=== PATIENT | female | born 1980 | race Caucasian/White ===

== ENCOUNTER 2016-10-23 20:49 | Emergency (ER) | payer OTHER ==
[2016-10-23] MEDS ORDERED: NS 0.9% 1000 ML* 1,000 ML IV ONE (22:52)
[2016-10-23 23:12] LABS: Hematocrit 41 % (35-47); Hemoglobin 13.8 g/dl (12.0-16.0); Mean Corpuscular HGB Conc 34 g/dl (31-36); Mean Corpuscular Hemoglobin 32 pg (27-31); Mean Corpuscular Volume 95 fL (80-97); Mean Platelet Volume 8 um3 (7.4-10.4); Red Blood Count 4.35 10^6/ul (4.0-5.4); Red Cell Distribution Width 13 % (10.5-15); White Blood Count 6.9 10^3/ul (3.5-10.8)
[2016-10-23 23:29] LABS: ALT 9 U/L (7-52); AST 10 U/L (13-39); Alkaline Phosphatase 39 U/L (34-104); Anion Gap 6 mmol/L (2-11); Blood Urea Nitrogen 13 mg/dL (6-24); CO2 Carbon Dioxide 28 mmol/L (22-32); Calcium 9.3 mg/dL (8.6-10.3); Chloride 107 mmol/L (101-111); EGFR African American 131.9 (>60); EGFR Non-African American 102.6 (>60); Globulin 2.7 g/dL (2-4); Glucose 64 mg/dL (70-100); Lipase 56 U/L (11.0-82.0); Potassium 3.8 mmol/L (3.5-5.0); Sodium 141 mmol/L (133-145); Total Protein 6.7 g/dL (6.4-8.9)
[2016-10-24] MEDS ORDERED: Iohexol 350* (CONTRAST) 500 ML MDV IV ONE (01:37)
[2016-10-24] MEDS ORDERED: Iohexol 300* (CONTRAST) 10 ML SDV IV ONE (01:40)
[2016-10-24 01:46] LABS: Urine Bilirubin Negative (Negative); Urine Glucose Negative (Negative); Urine Nitrite Negative (Negative)
--- NOTE | 2016-10-24 02:51 | ED ---
Librado Lee Alok, scribed for Rowdy Benitez on 10/23/16 at 2257 . Abdominal Pain/Female - HPI Summary HPI Summary: 36 female present to the ED with diffuse abd cramping and diarrhea for the past 3-4 days. Pt denies vomiting. Pt states she is currently taking the antibiotics clementin and was taking augmentin before that for a recent MRSA infection diagnosis. Pt states this is her 6-7th day on antibiotics. PMHx includes PTSD, h /o PE, and previous heart valve. - History of Current Complaint Chief Complaint: EDNauseaVomitDiarrh Stated Complaint: DIARRHEA,ABD PAIN Time Seen by Provider: 10/23/16 22:38 Hx Obtained From: Patient Hx Last Menstrual Period: iud ?: No Onset/Duration: Lasting Days, Still Present Timing: Constant Severity Initially: Moderate Severity Currently: Moderate Pain Intensity: 5 Pain Scale Used: 0-10 Numeric Location: Diffuse Character: Cramping Associated Signs and Symptoms: Positive: Diarrhea. Negative: Vomiting Allergies/Adverse Reactions: Allergies Allergy/AdvReac Type Severity Reaction Status Date / Time No Known Allergies Allergy Verified 10/23/16 20:51 PMH/Surg Hx/FS Hx/Imm Hx Endocrine/Hematology History: Reports: Hx Anticoagulant Therapy Denies: Hx Diabetes, Hx Thyroid Disease Cardiovascular History: Denies: Hx Congestive Heart Failure, Hx Deep Vein Thrombosis, Hx Hypertension , Hx Myocardial Infarction, Hx Pacemaker/ICD Respiratory History: Reports: Hx Pulmonary Embolism - recent diagnosis, Hx Sleep Apnea, Other Respiratory Problems/Disorders - HX OF BILATERAL PE'S Denies: Hx Asthma, Hx Chronic Obstructive Pulmonary Disease (COPD), Hx Lung Cancer, Hx Pneumonia GI History: Denies: Hx Gall Bladder Disease, Hx Gastrointestinal Bleed, Hx Ulcer, Hx Urosepsis History: Denies: Hx Kidney Stones, Hx Renal Disease Musculoskeletal History: Denies: Hx Scoliosis Sensory History: Denies: Hx Hearing Aid Neurological History: Reports: Hx CVA - x 2, Hx Seizures - Manic episodes. Denies: Hx Dementia, Hx Headaches, Hx Migraine, Hx Transient Ischemic Attacks (TIA) Psychiatric History: Reports: Hx Anxiety, Hx Depression, Hx Panic Disorder, Hx Post Traumatic Stress Disorder, Hx Bipolar Disorder - takes depakote Denies: Hx Eating Disorder, Hx of Violent Episodes Against Others - Surgical History Surgery Procedure, Year, and Place: appendectomy 2002;. MIRENA IUD Hx Anesthesia Reactions: No Infectious Disease History: Yes Infectious Disease History: Denies: Hx Clostridium Difficile, Hx Hepatitis, Hx Human Immunodeficiency Virus (HIV), Hx of Known/Suspected MRSA, Hx Shingles, Hx Tuberculosis, Hx Known/ Suspected VRE, Hx Known/Suspected VRSA, History Other Infectious Disease, Traveled Outside the [place] in Last 30 Days - Family History Known Family History: Negative: Cardiac Disease, Hypertension, Diabetes - Social History Occupation: Unemployed Alcohol Use: Rare Hx Substance Use: Yes Substance Use Type: Reports: None, Marijuana, Other Substance Use Comment - Amount & Last Used: States she smokes Marijuana ocassionally, IV meth use two days ago Hx Tobacco Use: Yes Smoking Status (MU): Heavy Every Day Tobacco Smoker Type: Cigarettes Amount Used/How Often: 1 ppd Have You Smoked in the Last Year: Yes Review of Systems Negative: Fever Positive: Abdominal Pain, Diarrhea. Negative: Vomiting All Other Systems Reviewed And Are Negative: Yes Physical Exam Triage Information Reviewed: Yes Vital Signs On Initial Exam: Initial Vitals Temp Pulse Resp BP Pulse Ox 98.5 F 78 18 130/71 99 10/23/16 20:52 10/23/16 20:52 10/23/16 20:52 10/23/16 20:52 10/23/16 20:52 Vital Signs Reviewed: Yes Appearance: Positive: Well-Appearing, No Pain Distress Skin: Positive: Other - Skin macules Head/Face: Positive: Normal Head/Face Inspection Eyes: Positive: EOMI, SHE ENT: Positive: Normal ENT inspection Neck: Positive: Supple, Nontender Respiratory/Lung Sounds: Positive: Clear to Auscultation, Breath Sounds Present Cardiovascular: Positive: RRR, Pulses are Symmetrical in both Upper and Lower Extremities Abdomen Description: Positive: Soft, Other: - diffuse abd tenderness Bowel Sounds: Positive: Present Musculoskeletal: Positive: Normal, Strength/ROM Intact Neurological: Positive: Normal, Sensory/Motor Intact, Alert, Oriented to Person Place, Time Diagnostics - Vital Signs Vital Signs Temp Pulse Resp BP Pulse Ox 10/23/16 20:52 98.5 F 78 18 130/71 99 - Laboratory Result Diagrams: 10/23/16 22:50 10/23/16 22:50 Lab Statement: Any lab studies that have been ordered have been reviewed, and results considered in the medical decision making process. - CT abd/pel CT CT Interpretation: Positive (See Comments) - Impression: No definite evidence of acute pathology. CT Interpretation Completed By: Radiologist Abdominal Pain Fem Course/Dx - Course Course Of Treatment: Pt arrived with abd pain. Did CT results negative. Pt was unable to provide stool sample for C.Diff. Will discharge pt home with stool collection kit and recommendation to follow up with PCP. - Diagnoses Provider Diagnoses: MRSA (methicillin resistant Staphylococcus aureus), Abdominal pain Discharge - Discharge Plan Condition: Stable Disposition: HOME Patient Education Materials: MRSA (Methicillin-Resistant Staphylococcus Aureus ) (ED), Abdominal Pain (ED) Additional Instructions: Please follow up with your primary care provider in the next 3 days. The documentation as recorded by the Librado schmidt Alok accurately reflects the service I personally performed and the decisions made by Emmanuel sinha Emmanuel.
[2016-10-24 03:24] VITALS: BP 105/57
--- NOTE | 2016-10-24 08:25 | RAD ---
INDICATION: Clinical presentation concerning for diverticulitis. Post appendectomy. COMPARISON: None. TECHNIQUE: Multidetector CT images were obtained from the lung bases to the ischial tuberosities with 97 mL Omnipaque 300 IV and oral contrast. Multiplanar reformation. REPORT: Unremarkable visualized inferior thorax. Unremarkable liver. The gallbladder is completely decompressed limiting assessment without gross abnormality. Unremarkable pancreas and spleen. Negative for CT abnormality of the upper GI or small bowel. Post appendectomy. Unremarkable colon which is largely decompressed from the splenic flexure distal. Physiologic small volume of free pelvic fluid. Negative for free air or significant hernias. Normal adrenal glands. Symmetric nephrograms and pyelograms. Small parapelvic cyst upper pole RIGHT kidney. No suspicious focal renal lesions or hydronephrosis. No suspicious findings along the course of the nondilated ureters. Innumerable pelvic phleboliths. Anteverted uterus with IUD in place the uterus the uterus measures up to 8.2 x 6.7 x 4.9 cm. Prominent opacified veins in the periphery of the uterus as well as bilateral adnexal regions and both enlargement of the LEFT gonadal vein and reversal of flow in the LEFT gonadal vein. The constellation of findings is concerning for pelvic congestion syndrome. No suspicious ovarian or paraovarian adnexal region lesions. Unremarkable urinary bladder. Negative for lymphadenopathy. Normal diameter abdominal aorta and iliac arteries with minimal calcific plaque. Physiologic distention of the IVC. Negative for suspicious focal osseous lesions. IMPRESSION: 1. Negative for colonic diverticulosis. Post appendectomy. No obstructive or inflammatory process of the alimentary tract evident. 2. Stigmata of potential pelvic congestion syndrome; correlate with clinical presentation.
== END 2016-10-24 02:55 | disposition home or self-care (01) ==
LOC: ED 20:49
DX: A49.02 Methicillin resistant Staphylococcus aureus infection, unspecified site (principal); R10.9 Unspecified abdominal pain; R19.7 Diarrhea, unspecified
CPT/HCPCS: 36415; 74177; 80053; 81003; 83690; 84702; 85025; 85610; 85730; 99284; Q9967

== ENCOUNTER 2016-11-28 14:33 | Emergency (ER) | payer OTHER ==
--- NOTE | 2016-11-28 15:45 | UC ---
Abdominal Pain Female HPI - HPI Summary HPI Summary: 36 yo female with ruq pain x days States she was seen at [facility] 2 days ago and an ultrasound showed her gall bladder was full of stones has felt feverish states her urine is now dark nausea no vomiting states she has had numerous "issues" x 2 years including wt loss, chronic skin sores - History of Current Complaint Chief Complaint: UCGeneralIllness Stated Complaint: ABD LUMP,LEG SWELLING Time Seen by Provider: 11/28/16 15:24 Hx Obtained From: Patient Hx Last Menstrual Period: IUD Onset/Duration: Gradual Onset, Lasting Days Timing: Constant Severity Initially: Mild Severity Currently: Moderate Pain Intensity: 8 Pain Scale Used: 0-10 Numeric Location: Discrete At: RUQ Character: Aching Aggravating Factor(s): Movement Alleviating Factor(s): Nothing Associated Signs and Symptoms: Positive: Diaphoresis, Nausea Allergies/Adverse Reactions: Allergies Allergy/AdvReac Type Severity Reaction Status Date / Time No Known Allergies Allergy Verified 11/28/16 14:40 Home Medications: Home Medications Methylphenidate ER (NF) [Concerta (NF)] 27 mg PO DAILY 11/28/16 [History Confirmed 11/28/16] PMH/Surg Hx/FS Hx/Imm Hx Previously Healthy: Yes Other History Of: Anticoagulant Therapy Negative For: HIV, Hepatitis B, Hepatitis C - Surgical History Surgical History: Yes Surgery Procedure, Year, and Place: appendectomy 2002;. MIRENA IUD - Family History Known Family History: Positive: Other - gall bladder disease Negative: Cardiac Disease, Hypertension, Diabetes - Social History Alcohol Use: Rare Substance Use Type: Marijuana, Other Substance Use Comment - Amount & Last Used: States she smokes Marijuana ocassionally, IV meth use two days ago Smoking Status (MU): Heavy Every Day Tobacco Smoker Type: Cigarettes Amount Used/How Often: 1 ppd Have You Smoked in the Last Year: Yes Household Exposure Type: Cigarettes - Immunization History Most Recent Influenza Vaccination: March 2015 Most Recent Tetanus Shot: unknown Most Recent Pneumonia Vaccination: Never Review of Systems Constitutional: Fever - augustine, Chills Skin: Negative Eyes: Negative ENT: Negative Respiratory: Negative Cardiovascular: Negative Gastrointestinal: Abdominal Pain Genitourinary: Negative Motor: Negative Neurovascular: Negative Musculoskeletal: Negative Neurological: Negative Psychological: Negative All Other Systems Reviewed And Are Negative: Yes Physical Exam Triage Information Reviewed: Yes Appearance: Well-Appearing, Pain Distress - holding RUQ, Thin Vital Signs: Initial Vital Signs Temp 99.6 F 11/28/16 14:37 Pulse 114 11/28/16 14:37 Resp 18 11/28/16 14:37 BP 148/80 11/28/16 14:37 Pulse Ox 100 11/28/16 14:37 Vital Signs Reviewed: Yes Eyes: Positive: Conjunctiva Clear ENT: Positive: Pharyngeal erythema - thrush? Dental: Negative: Abscess @ Neck: Positive: Supple, Nontender, No Lymphadenopathy Respiratory: Positive: Lungs clear, Normal breath sounds, No respiratory distress, No accessory muscle use Cardiovascular: Positive: RRR, No Murmur Abdomen Description: Positive: No Organomegaly, Soft, CVA Tenderness (R) - mild , Other: - tender RUQ. Negative: Nontender, Bruit Bowel Sounds: Positive: Present Musculoskeletal: Positive: ROM Intact, No Edema Neurological: Positive: Alert Psychological Exam: Normal Skin Exam: Other - numerous quarter sized lesions face/arms/abd/back some crusted /some ulcerated Abd Pain Female Course/Dx - Course Course Of Treatment: pt reports multiple gallstones (u/s done at [facility]), pain worse now, feverish, chills and nausea. tachycardic. very tender RUQ I suggested she go to [facility] for further evaluation. She declines EMS transfer - Differential Dx/Diagnosis Provider Diagnoses: RUQ abd pain of uncertain cause Discharge - Discharge Plan Condition: Fair Disposition: AGAINST MEDICAL ADVICE
[2016-11-28] MEDS ORDERED: Ondansetron ODT TAB* 4 MG PO ONE (15:57)
[2016-11-28] MEDS ORDERED: Ketorolac INJ* 30 MG/ML 1 ML VIAL IM ONE (15:57)
[2016-11-28 16:39] VITALS: BP 135/79
== END 2016-11-28 16:39 | disposition left against medical advice (07) ==
LOC: UCEAST 14:33
DX: R10.11 Right upper quadrant pain (principal); F17.210 Nicotine dependence, cigarettes, uncomplicated
CPT/HCPCS: 81003; 96372; 99212; A9270-GY; G0463; J1885

== ENCOUNTER 2016-11-28 17:17 | Emergency (ER) | payer OTHER ==
[2016-11-28 20:08] LABS: Hematocrit 39 % (35-47); Hemoglobin 13.4 g/dl (12.0-16.0); Mean Corpuscular HGB Conc 34 g/dl (31-36); Mean Corpuscular Hemoglobin 33 pg (27-31); Mean Corpuscular Volume 95 fL (80-97); Mean Platelet Volume 7 um3 (7.4-10.4); Red Blood Count 4.11 10^6/ul (4.0-5.4); Red Cell Distribution Width 13 % (10.5-15); White Blood Count 6.3 10^3/ul (3.5-10.8)
[2016-11-28 20:23] LABS: Albumin 4.2 g/dL (3.2-5.2); BUN/Creatinine Ratio 14.7 (8-20); C Reactive Protein 8.18 mg/L (< 5.00); Calcium 9.4 mg/dL (8.6-10.3); EGFR African American 125.2 (>60); EGFR Non-African American 97.4 (>60); Globulin 2.8 g/dL (2-4); Potassium 3.6 mmol/L (3.5-5.0); Total Bilirubin 0.3 mg/dL (0.2-1.0)
[2016-11-28 20:38] LABS: Urine Bacteria Absent (Absent); Urine Bilirubin Negative (Negative); Urine Glucose Negative (Negative); Urine Nitrite Negative (Negative)
[2016-11-28 20:46] LABS: Benzodiazepine Urine Screen None Detected (None Detect)
--- NOTE | 2016-11-28 21:53 | RAD ---
Indication: Right upper quadrant pain. Real-time sonography of the right upper quadrant was performed. The liver is normal in size. No focal lesions or intrahepatic ductal dilatation is noted. The gallbladder demonstrates multiple echogenic foci consistent with gallstones. No pericholecystic fluid or wall thickening is noted. Common duct measures up to 8 mm. Right kidney measures 12.3 x 4.6 x 6.1 cm with no hydronephrosis. Cyst is noted in the upper pole the right kidney measured to 15 mm. The pancreatic head, neck and proximal body demonstrates no mass or ductal dilatation. Aorta and inferior vena cava are unremarkable. IMPRESSION: Cholelithiasis without evidence of biliary duct dilatation. Cyst is noted in the upper pole of the right kidney.
[2016-11-28] MEDS ORDERED: Cephalexin CAP* 500 MG PO ONE (22:26)
[2016-11-28 23:09] VITALS: BP 122/78
--- NOTE | 2016-11-28 23:41 | ED ---
Avery Lee Aidan, scribed for Madhav Levine MD on 11/28/16 at 2225 . Complex/Multi-Sys Presentation - HPI Summary HPI Summary: 36 y/o female presents to the ED with a complaint of acute, constant, moderate, skin scabs over her body diffusely. Additionally, she has acute, constant, moderate RUQ abdominal pain. She currently has gallstones. The patient also mentions stuff coming out of her skin. She mentions having been on antibiotics for a long time. - History Of Current Complaint Chief Complaint: EDGeneral Time Seen by Provider: 11/28/16 19:43 Hx Obtained From: Patient Onset/Duration: Sudden Onset, Lasting Days, Still Present Timing: Constant Severity Currently: Moderate Severity Initially: Moderate Location: Pain At: - associated pain (burning sensation) at her scabs which present on her body diffusely Character: Unable To Describe - burning sensation Aggravating Factor(s): unknown Alleviating Factor(s): unknown Associated Signs And Symptoms: Positive: Abdominal Pain - RUQ pain, Other - diffuse body scabs - Allergies/Home Medications Allergies/Adverse Reactions: Allergies Allergy/AdvReac Type Severity Reaction Status Date / Time No Known Allergies Allergy Verified 11/28/16 14:40 PMH/Surg Hx/FS Hx/Imm Hx Endocrine/Hematology History: Reports: Hx Anticoagulant Therapy Denies: Hx Diabetes, Hx Thyroid Disease Cardiovascular History: Denies: Hx Congestive Heart Failure, Hx Deep Vein Thrombosis, Hx Hypertension , Hx Myocardial Infarction, Hx Pacemaker/ICD Respiratory History: Reports: Hx Pulmonary Embolism - recent diagnosis, Hx Sleep Apnea, Other Respiratory Problems/Disorders - HX OF BILATERAL PE'S Denies: Hx Asthma, Hx Chronic Obstructive Pulmonary Disease (COPD), Hx Lung Cancer, Hx Pneumonia GI History: Denies: Hx Gall Bladder Disease, Hx Gastrointestinal Bleed, Hx Ulcer, Hx Urosepsis History: Denies: Hx Dialysis, Hx Kidney Stones, Hx Renal Disease Musculoskeletal History: Denies: Hx Scoliosis Sensory History: Denies: Hx Hearing Aid Neurological History: Reports: Hx CVA - x 2, Hx Seizures - Manic episodes. Denies: Hx Dementia, Hx Headaches, Hx Migraine, Hx Transient Ischemic Attacks (TIA) Psychiatric History: Reports: Hx Anxiety, Hx Depression, Hx Panic Disorder, Hx Post Traumatic Stress Disorder, Hx Bipolar Disorder - takes depakote Denies: Hx Eating Disorder, Hx of Violent Episodes Against Others - Surgical History Surgery Procedure, Year, and Place: appendectomy 2002;. MIRENA IUD Hx Anesthesia Reactions: No Infectious Disease History: No Infectious Disease History: Reports: Hx of Known/Suspected MRSA Denies: Hx Clostridium Difficile, Hx Hepatitis, Hx Human Immunodeficiency Virus (HIV), Hx Shingles, Hx Tuberculosis, Hx Known/Suspected VRE, Hx Known/ Suspected VRSA, History Other Infectious Disease, Traveled Outside the [place] in Last 30 Days - Family History Known Family History: Positive: Other - gall bladder disease Negative: Cardiac Disease, Hypertension, Diabetes - Social History Occupation: Unemployed Lives: Alone Alcohol Use: Rare Hx Substance Use: Yes Substance Use Type: Reports: Marijuana Substance Use Comment - Amount & Last Used: States she smokes Marijuana ocassionally Hx Tobacco Use: Yes Smoking Status (MU): Heavy Every Day Tobacco Smoker Type: Cigarettes Amount Used/How Often: 1 ppd Have You Smoked in the Last Year: Yes Review of Systems Constitutional: Negative Eyes: Negative ENT: Negative Cardiovascular: Negative Respiratory: Negative Genitourinary: Negative Musculoskeletal: Negative Positive: Other - diffuse body scabs. Negative: Rash, Bruising Neurological: Negative Psychological: Normal All Other Systems Reviewed And Are Negative: Yes Physical Exam - Summary Physical Exam Summary: Constitutional: Well-developed, Well-nourished, Alert. (-) Distressed Skin: Warm, Dry, (+) Excoriated ulcerated wounds on hands, feet, abdomen, and back of the neck with no surrounding erythema HENT: Normocephalic; Atraumatic Eyes: Conjunctiva normal Neck: Musculoskeletal ROM normal neck. (-) JVD, (-) Stridor, (-) Tracheal deviation Cardio: Rhythm regular, rate normal, Heart sounds normal; Intact distal pulses; The pedal pulses are 2+ and symmetric. Radial pulses are 2+ and symmetric. (-) Murmur Pulmonary/Chest wall: Effort normal. (-) Respiratory distress, (-) Wheezes, (-) Rales Abd: Soft, (-) Tenderness, (-) Distension, (-) Guarding, (-) Rebound Musculoskeletal: (-) Edema Lymph: (-) Cervical adenopathy Neuro: Alert, Oriented x3 Psych: Mood and affect Normal Triage Information Reviewed: Yes Vital Signs On Initial Exam: Initial Vitals Temp Pulse Resp BP Pulse Ox 98.8 F 114 20 132/91 100 11/28/16 17:34 11/28/16 17:34 11/28/16 17:34 11/28/16 17:34 11/28/16 17:34 Vital Signs Reviewed: Yes - [place]ago Coma Scale Coma Scale Total: 15 Diagnostics - Vital Signs Vital Signs Temp Pulse Resp BP Pulse Ox 11/28/16 18:57 85 16 128/55 100 11/28/16 17:36 98.6 F 113 20 132/91 100 11/28/16 17:34 98.8 F 114 20 132/91 100 - Laboratory Lab Results: Lab Results 11/28/16 11/28/16 11/28/16 Range/Units 19:59 19:59 19:59 WBC 6.3 (3.5-10.8) 10^3/ul RBC 4.11 (4.0-5.4) 10^6/ul Hgb 13.4 (12.0-16.0) g/dl Hct 39 (35-47) % MCV 95 (80-97) fL MCH 33 H (27-31) pg MCHC 34 (31-36) g/dl RDW 13 (10.5-15) % Plt Count 278 (150-450) 10^3/ul MPV 7 L (7.4-10.4) um3 Neut % (Auto) 54.2 (38-83) % Lymph % (Auto) 34.1 (25-47) % Ray % (Auto) 8.9 (1-9) % Eos % (Auto) 2.3 (0-6) % Baso % (Auto) 0.5 (0-2) % Absolute Neuts (auto) 3.4 (1.5-7.7) 10^3/ul Absolute Lymphs (auto) 2.1 (1.0-4.8) 10^3/ul Absolute Monos (auto) 0.6 (0-0.8) 10^3/ul Absolute Eos (auto) 0.1 (0-0.6) 10^3/ul Absolute Basos (auto) 0 (0-0.2) 10^3/ul Absolute Nucleated RBC 0 10^3/ul Nucleated RBC % 0 Sodium 137 (133-145) mmol/L Potassium 3.6 (3.5-5.0) mmol/L Chloride 104 (101-111) mmol/L Carbon Dioxide 26 (22-32) mmol/L Anion Gap 7 (2-11) mmol/L BUN 10 (6-24) mg/dL Creatinine 0.68 (0.51-0.95) mg/dL Est GFR ( Amer) 125.2 (>60) Est GFR (Non-Af Amer) 97.4 (>60) BUN/Creatinine Ratio 14.7 (8-20) Glucose 75 (70-100) mg/dL Lactic Acid 1.0 (0.5-2.0) mmol/L Calcium 9.4 (8.6-10.3) mg/dL Total Bilirubin 0.30 (0.2-1.0) mg/dL AST 16 (13-39) U/L ALT 15 (7-52) U/L Alkaline Phosphatase 38 (34-104) U/L C-Reactive Protein 8.18 H (< 5.00) mg/L Total Protein 7.0 (6.4-8.9) g/dL Albumin 4.2 (3.2-5.2) g/dL Globulin 2.8 (2-4) g/dL Albumin/Globulin Ratio 1.5 (1-3) Lipase 25 (11.0-82.0) U/L Urine Color Urine Appearance Urine pH (5-9) Ur Specific [place] (1.010-1.030) Urine Protein (Negative) Urine Ketones (Negative) Urine Blood (Negative) Urine Nitrate (Negative) Urine Bilirubin (Negative) Urine Urobilinogen (Negative) Ur Leukocyte Esterase (Negative) Urine WBC (Auto) (Absent) Urine RBC (Auto) (Absent) Ur Squamous Epith Cells (Absent) Amorphous Crystals (Absent) Urine Bacteria (Absent) Urine Glucose (Negative) Urine Opiates Screen (None Detect) Ur Barbiturates Screen (None Detect) Ur Phencyclidine Scrn (None Detect) Ur Amphetamines Screen (None Detect) U Benzodiazepines Scrn (None Detect) Urine Cocaine Screen (None Detect) U Cannabinoids Screen (None Detect) 11/28/16 11/28/16 Range/Units 20:20 20:20 WBC (3.5-10.8) 10^3/ul RBC (4.0-5.4) 10^6/ul Hgb (12.0-16.0) g/dl Hct (35-47) % MCV (80-97) fL MCH (27-31) pg MCHC (31-36) g/dl RDW (10.5-15) % Plt Count (150-450) 10^3/ul MPV (7.4-10.4) um3 Neut % (Auto) (38-83) % Lymph % (Auto) (25-47) % Ray % (Auto) (1-9) % Eos % (Auto) (0-6) % Baso % (Auto) (0-2) % Absolute Neuts (auto) (1.5-7.7) 10^3/ul Absolute Lymphs (auto) (1.0-4.8) 10^3/ul Absolute Monos (auto) (0-0.8) 10^3/ul Absolute Eos (auto) (0-0.6) 10^3/ul Absolute Basos (auto) (0-0.2) 10^3/ul Absolute Nucleated RBC 10^3/ul Nucleated RBC % Sodium (133-145) mmol/L Potassium (3.5-5.0) mmol/L Chloride (101-111) mmol/L Carbon Dioxide (22-32) mmol/L Anion Gap (2-11) mmol/L BUN (6-24) mg/dL Creatinine (0.51-0.95) mg/dL Est GFR ( Amer) (>60) Est GFR (Non-Af Amer) (>60) BUN/Creatinine Ratio (8-20) Glucose (70-100) mg/dL Lactic Acid (0.5-2.0) mmol/L Calcium (8.6-10.3) mg/dL Total Bilirubin (0.2-1.0) mg/dL AST (13-39) U/L ALT (7-52) U/L Alkaline Phosphatase (34-104) U/L C-Reactive Protein (< 5.00) mg/L Total Protein (6.4-8.9) g/dL Albumin (3.2-5.2) g/dL Globulin (2-4) g/dL Albumin/Globulin Ratio (1-3) Lipase (11.0-82.0) U/L Urine Color [place] Urine Appearance Cloudy Urine pH 7.0 (5-9) Ur Specific [place] 1.028 (1.010-1.030) Urine Protein 1+(30 mg/dl) H (Negative) Urine Ketones Trace H (Negative) Urine Blood Negative (Negative) Urine Nitrate Negative (Negative) Urine Bilirubin Negative (Negative) Urine Urobilinogen Negative (Negative) Ur Leukocyte Esterase 1+ H (Negative) Urine WBC (Auto) Trace(0-5/hpf) (Absent) Urine RBC (Auto) 2+(6-10/hpf) H (Absent) Ur Squamous Epith Cells Present H (Absent) Amorphous Crystals Present H (Absent) Urine Bacteria Absent (Absent) Urine Glucose Negative (Negative) Urine Opiates Screen None detected (None Detect) Ur Barbiturates Screen None detected (None Detect) Ur Phencyclidine Scrn None detected (None Detect) Ur Amphetamines Screen Presumptive positive H (None Detect) U Benzodiazepines Scrn None detected (None Detect) Urine Cocaine Screen None detected (None Detect) U Cannabinoids Screen Presumptive positive H (None Detect) Result Diagrams: 11/28/16 19:59 11/28/16 19:59 Lab Statement: Any lab studies that have been ordered have been reviewed, and results considered in the medical decision making process. - Ultrasound No standard instances Ultrasound Interpretation: Positive (See Comments) - GALLBLADDER US IMPRESSION: Cholelithiasis without evidence of biliary duct dilatation. Cyst is noted in the upper pole of the right kidney. Ultrasound Interpretation Completed By: Radiologist Jazmine Multi-Symp Course/Dx Course Of Treatment: 36 y/o female presents with diffuse body scabs and RUQ abdominal pain. She will be discharged and should follow up with dermatology, surgery, and with her therapist. - Diagnoses Provider Diagnoses: Anxiety, picking behavior, Gallstones Discharge - Discharge Plan Condition: Stable Disposition: HOME Discharge Disposition Comment: Please follow up with dermatology, surgery, and therapy within 72 hours. Prescriptions: Cephalexin CAP* [Keflex CAP*] 500 mg PO QID #40 cap Referrals: Nuha Borrero MD [Primary Care Provider] - Viviana Gonzalez MD [Medical Doctor] - Chuy Campa MD [Medical Doctor] - The documentation as recorded by the Avery schmidt Aidan accurately reflects the service I personally performed and the decisions made by , Madhav Levine MD.
== END 2016-11-28 23:13 | disposition home or self-care (01) ==
LOC: ED 17:17
DX: F41.9 Anxiety disorder, unspecified (principal); K80.80 Other cholelithiasis without obstruction; R10.11 Right upper quadrant pain; F17.210 Nicotine dependence, cigarettes, uncomplicated
CPT/HCPCS: 36415; 76705; 80053; 80307; 81003; 81015; 83605; 83690; 85025; 86140; 87086; 99283; A9270-GY

== ENCOUNTER 2017-07-06 17:43 | Emergency (ER) | payer OTHER ==
[2017-07-06 19:52] LABS: Urine Appearance Cloudy; Urine Blood 1+ (Negative); Urine Color Yellow; Urine Ketones Negative (Negative); Urine Protein Negative (Negative); Urine Specific Gravity 1.019 (1.010-1.030); Urine Urobilinogen Negative (Negative)
[2017-07-06] MEDS ORDERED: NS 0.9% 1000 ML* 1,000 ML IV ONE (19:56)
[2017-07-06] MEDS ORDERED: Ketorolac INJ* 30 MG/ML 1 ML VIAL IV PUSH ONE (19:56)
[2017-07-06 20:55] LABS: ABS Basophils 0 10^3/ul (0-0.2); ABS Eosinophils 0.1 10^3/ul (0-0.6); ABS Lymphocytes 2.2 10^3/ul (1.0-4.8); ABS Monocytes 0.6 10^3/ul (0-0.8); ABS Neutrophils 5.8 10^3/ul (1.5-7.7); ABS Nucleated RBC 0 10^3/ul; Eosinophil % 1.6 % (0-6); Hematocrit 41 % (35-47); Hemoglobin 13.8 g/dl (12.0-16.0); Lymphocyte % 24.9 % (25-47); Mean Corpuscular HGB Conc 34 g/dl (31-36); Mean Corpuscular Hemoglobin 32 pg (27-31); Mean Corpuscular Volume 94 fL (80-97); Mean Platelet Volume 8 um3 (7.4-10.4); Nucleated Red Blood Cells % 0; Platelet Count 284 10^3/ul (150-450); Red Blood Count 4.36 10^6/ul (4.0-5.4); Red Cell Distribution Width 14 % (10.5-15); White Blood Count 8.8 10^3/ul (3.5-10.8)
[2017-07-06 21:06] LABS: EGFR Non-African American 89.7 (>60)
[2017-07-06] MEDS ORDERED: Iohexol 350* (CONTRAST) 500 ML MDV IV ONE (21:48)
--- NOTE | 2017-07-06 22:07 | RAD ---
Indication: Facial swelling. CT of the facial bones was obtained in the axial plane. Postcontrast images were obtained after intravenous injection of 63 mL of Omnipaque 350. Sagittal and coronal reconstructed images were obtained. The mandible demonstrates no evidence of fracture. Temporomandibular joints are normally located. The maxilla demonstrates no fracture. Pterygoid plates are intact. The nasal arch and nasal septum are intact without fracture. Maxillary sinuses are clear. Zygomatic arch are intact bilaterally with no evidence of fracture. Ethmoid air cells are well aerated. The orbits are intact without evidence of fracture. Soft tissue demonstrates no evidence of abnormal enhancing tissue. No drainable fluid collections are noted. The parotid glands are unremarkable. Scattered minimal 2 lymph nodes are noted. Submandibular glands are grossly unremarkable. IMPRESSION: No fracture of the facial bones is identified. Scattered level 2 lymph nodes are noted in the neck bilaterally.
[2017-07-06] MEDS ORDERED: Clindamycin CAP* 150 MG PO ONE (22:27)
[2017-07-06] MEDS ORDERED: predniSONE TAB* 20 MG PO ONE (22:28)
[2017-07-06 23:19] VITALS: BP 125/69
--- NOTE | 2017-07-07 00:05 | ED ---
Simona Lee Nilda, scribed for Sharon Bhardwaj MD on 07/06/17 at 2031 . Complex/Multi-Sys Presentation - HPI Summary HPI Summary: This patient is a 36 year old F presenting to [facility] accompanied by kids with a chief complaint of constant, progressively worsening facial swelling and painful erythematous lesion on right forehead since waking up today. The patient rates the pain 4/10 in severity. Symptoms aggravated by palpation, and alleviated by nothing. Patient reports abd pain and abd swelling since yesterday , as well as chronic lesions on bilat UE. Last BM was 3-4 days ago. Pt denies N/ V/D, per triage note. Pt states she visited package designer who could not diagnose her. She notes that she had similar episode of facial swelling and lesions after being bitten by deer fly years ago. Pt is a smoker who occasionally smokes marijuana. She denies ETOH. - History Of Current Complaint Chief Complaint: EDAbdPain Time Seen by Provider: 07/06/17 19:35 Hx Obtained From: Patient Onset/Duration: Sudden Onset, Lasting Hours, Still Present Timing: Constant Severity Currently: Moderate Location: Pain At: - face and abd Aggravating Factor(s): palpation Alleviating Factor(s): nothing Associated Signs And Symptoms: Positive: Other - facial swelling and painful erythematous lesion on right forehead, abd pain and abd swelling since yesterday , as well as chronic lesions on bilat UE - Allergies/Home Medications Allergies/Adverse Reactions: Allergies Allergy/AdvReac Type Severity Reaction Status Date / Time No Known Allergies Allergy Verified 07/06/17 17:56 PMH/Surg Hx/FS Hx/Imm Hx Endocrine/Hematology History: Reports: Hx Anticoagulant Therapy Denies: Hx Diabetes, Hx Thyroid Disease Cardiovascular History: Denies: Hx Congestive Heart Failure, Hx Deep Vein Thrombosis, Hx Hypertension , Hx Myocardial Infarction, Hx Pacemaker/ICD Respiratory History: Reports: Hx Pulmonary Embolism - recent diagnosis, Hx Sleep Apnea, Other Respiratory Problems/Disorders - HX OF BILATERAL PE'S Denies: Hx Asthma, Hx Chronic Obstructive Pulmonary Disease (COPD), Hx Lung Cancer, Hx Pneumonia GI History: Denies: Hx Gall Bladder Disease, Hx Gastrointestinal Bleed, Hx Ulcer, Hx Urosepsis History: Denies: Hx Dialysis, Hx Kidney Stones, Hx Renal Disease Musculoskeletal History: Denies: Hx Scoliosis Sensory History: Denies: Hx Hearing Aid Neurological History: Reports: Hx CVA - x 2, Hx Seizures - Manic episodes. Denies: Hx Dementia, Hx Headaches, Hx Migraine, Hx Transient Ischemic Attacks (TIA) Psychiatric History: Reports: Hx Anxiety, Hx Depression, Hx Panic Disorder, Hx Post Traumatic Stress Disorder, Hx Bipolar Disorder - takes depakote Denies: Hx Eating Disorder, Hx of Violent Episodes Against Others - Surgical History Surgery Procedure, Year, and Place: appendectomy 2002;. MIRENA IUD Hx Anesthesia Reactions: No Infectious Disease History: No Infectious Disease History: Reports: Hx of Known/Suspected MRSA Denies: Hx Clostridium Difficile, Hx Hepatitis, Hx Human Immunodeficiency Virus (HIV), Hx Shingles, Hx Tuberculosis, Hx Known/Suspected VRE, Hx Known/ Suspected VRSA, History Other Infectious Disease, Traveled Outside the [place] in Last 30 Days - Family History Known Family History: Positive: Hypertension, Other - gall bladder disease, Crohn's Negative: Cardiac Disease, Diabetes - Social History Lives: With Family Alcohol Use: None Hx Substance Use: Yes Substance Use Type: Reports: Marijuana Substance Use Comment - Amount & Last Used: States she smokes Marijuana ocassionally Hx Tobacco Use: Yes Smoking Status (MU): Heavy Every Day Tobacco Smoker Type: Cigarettes Amount Used/How Often: 1 ppd Have You Smoked in the Last Year: Yes Review of Systems Positive: Abdominal Pain, Other - abd swelling. Negative: Vomiting, Diarrhea, Nausea Positive: Other - facial swelling, painful erythematous lesion on right forehead , bilat UE chronic lesions All Other Systems Reviewed And Are Negative: Yes Physical Exam - Summary Physical Exam Summary: VITAL SIGNS: Reviewed. GENERAL: Patient is a well-developed and nourished female who is lying comfortable in the stretcher. Patient is not in any acute respiratory distress. HEAD AND FACE: No signs of trauma. No ecchymosis, hematomas or skull depressions. No sinus tenderness. Facial swelling in upper face. Localized tender swelling over right forehead. EYES: PERRLA, EOMI x 2, No injected conjunctiva, no nystagmus. EARS: Hearing grossly intact. Ear canals and tympanic membranes are within normal limits. MOUTH: Oropharynx within normal limits. NECK: Supple, trachea is midline, no adenopathy, no JVD, no carotid bruit, no c- spine tenderness, neck with full ROM. CHEST: Symmetric, no tenderness at palpation LUNGS: Clear to auscultation bilaterally. No wheezing or crackles. CVS: Regular rate and rhythm, S1 and S2 present, no murmurs or gallops appreciated. ABDOMEN: Soft, non-tender. No signs of distention. No rebound no guarding, and no masses palpated. Bowel sounds are normal. EXTREMITIES: FROM in all major joints, no edema, no cyanosis or clubbing. NEURO: Alert and oriented x 3. No acute neurological deficits. Speech is normal and follows commands. SKIN: Dry and warm. Chronic macular rash Triage Information Reviewed: Yes Vital Signs On Initial Exam: Initial Vitals Temp Pulse Resp BP Pulse Ox 99.3 F 94 16 115/85 100 07/06/17 17:56 07/06/17 17:56 07/06/17 17:56 07/06/17 17:56 07/06/17 17:56 Vital Signs Reviewed: Yes - [place] Coma Scale Coma Scale Total: 15 Diagnostics - Vital Signs Vital Signs Temp Pulse Resp BP Pulse Ox 07/06/17 18:27 78 99 07/06/17 17:56 99.3 F 94 16 115/85 100 - Laboratory Lab Results: Lab Results 07/06/17 Range/Units 19:28 Urine Color Yellow Urine Appearance Cloudy Urine pH 6.0 (5-9) Ur Specific [place] 1.019 (1.010-1.030) Urine Protein Negative (Negative) Urine Ketones Negative (Negative) Urine Blood 1+ H (Negative) Urine Nitrate Negative (Negative) Urine Bilirubin Negative (Negative) Urine Urobilinogen Negative (Negative) Ur Leukocyte Esterase Trace H (Negative) Urine WBC (Auto) Trace(0-5/hpf) (Absent) Urine RBC (Auto) Trace(0-2/hpf) (Absent) Ur Squamous Epith Cells Present H (Absent) Urine Bacteria 1+ H (Absent) Urine Glucose Negative (Negative) Result Diagrams: 07/06/17 20:30 07/06/17 20:30 Lab Statement: Any lab studies that have been ordered have been reviewed, and results considered in the medical decision making process. - CT Maxillofacial CT Interpretation Completed By: Radiologist - CT Maxillofacial, per radiologist , reveals no fracture of the facial bones is identified. Scattered level 2 lymph nodes are noted in the neck bilaterally. Dr. Bhardwaj has reviewed this radiology report. Complex Multi-Symp Course/Dx Assessment/Plan: Reviewed lab results and imaging results with pt. Pt may have allergic reaction vs mild cellulitis. She will be treated with clindamycin and prednisone to cover both. Dx Facial swelling - Diagnoses Provider Diagnoses: Facial swelling Discharge - Discharge Plan Condition: Stable Disposition: HOME Prescriptions: Clindamycin Cap(NF) [Clindamycin Cap 300 mg Cap(NF)] 300 mg PO Q6H #30 cap Ibuprofen TAB* [Motrin TAB* 800 MG] 800 mg PO Q6H PRN #30 tab PRN Reason: Pain predniSONE TAB* [Deltasone TAB*] 40 mg PO DAILY #10 tab Patient Education Materials: Cellulitis (ED), General Allergic Reaction (ED) Referrals: Nuha Borrero MD [Primary Care Provider] - 3 Days Additional Instructions: RETURN TO THE EMERGENCY DEPARTMENT FOR CHANGING OR WORSENING SYMPTOMS. The documentation as recorded by the Simona schmidt Nilda accurately reflects the service I personally performed and the decisions made by Lashae sinha Abdul, MD.
== END 2017-07-06 23:23 | disposition home or self-care (01) ==
LOC: ED 17:43
DX: R10.9 Unspecified abdominal pain (principal); F17.210 Nicotine dependence, cigarettes, uncomplicated; R22.0 Localized swelling, mass and lump, head
CPT/HCPCS: 36415; 70487; 80053; 81003; 81015; 84702; 85025; 86140; 87086; 96374; 99283; A9270-GY; J1885; J7512; Q9967

== ENCOUNTER 2017-07-17 11:56 | Inpatient (IN) | payer OTHER ==
[2017-07-17] MEDS ORDERED: Vancomycin(*) 1,250 MG in NS 0.9% 250 ML* 250 ML IVPB ONE (14:13)
--- NOTE | 2017-07-17 14:26 | ED ---
Skin Complaint - HPI Summary HPI Summary: patient is a 36-year-old female who presents to the ED with a chief complaint of diffuse lesions and scabbing to the body for several months. She was seen in the ED 2 weeks ago with a lesion over the right eyebrow and was given a 10 day course of clindamycin. The area was not cultured, as it was not draining any purulent fluid. She arrives today with worsening scabbing and left elbow abscess with purulent and serosanguineous drainage. She denies fevers, sweats, chills. She states she is immunocompromise has problems with her liver, digestion, vitamin deficiency. She is diagnosed bipolar. She is requesting admission into the hospital at this time. Denies headache, visual changes, neck pain. She has been seen by Dr. Ortega but is refusing to return based on difference of opinion. She also does not currently have a PCP in the area and is requesting a referral. She states she has been dealing with skin issues for many years and has been seen by a planning assistant with no improvement. She denies any drug use or alcohol use. Patient is a heavy smoker. She was seen 6 months ago by an emergency room provider who diagnosed her with a dermatitis and a picking disorder. She has been referred back to her therapist. Patient denies shortness of breath, chest discomfort, nausea vomiting constipation or diarrhea. - History of Current Complaint Chief Complaint: EDExtremityUpper Time Seen by Provider: 07/17/17 13:48 Stated Complaint: POSSIBLE MRSA INFECTION SPREADING Hx Obtained From: Patient Hx Last Menstrual Period: IUD Onset/Duration: Still Present Skin Exposure Onset/Duration: Worse Since: - 2 days ago Timing: Lasting Weeks Onset Severity: Moderate Current Severity: Moderate Pain Intensity: 0 Pain Scale Used: 0-10 Numeric Skin Location: Diffuse Character: Swelling, Pain, Redness, Raised, Painful Aggravating Symptom(s): Touch Alleviating Symptom(s): Nothing Associated Signs & Symptoms: Tenderness, Red Streaks, Joint Swelling - Additional Pertinent History Primary Care Physician: [id number] - Allergy/Home Medications Allergies/Adverse Reactions: Allergies Allergy/AdvReac Type Severity Reaction Status Date / Time No Known Allergies Allergy Verified 07/06/17 17:56 PMH/Surg Hx/FS Hx/Imm Hx Previously Healthy: Yes Endocrine/Hematology History: Reports: Hx Anticoagulant Therapy Denies: Hx Diabetes, Hx Thyroid Disease Cardiovascular History: Denies: Hx Congestive Heart Failure, Hx Deep Vein Thrombosis, Hx Hypertension , Hx Myocardial Infarction, Hx Pacemaker/ICD Respiratory History: Reports: Hx Pulmonary Embolism - recent diagnosis, Hx Sleep Apnea, Other Respiratory Problems/Disorders - HX OF BILATERAL PE'S Denies: Hx Asthma, Hx Chronic Obstructive Pulmonary Disease (COPD), Hx Lung Cancer, Hx Pneumonia GI History: Denies: Hx Gall Bladder Disease, Hx Gastrointestinal Bleed, Hx Ulcer, Hx Urosepsis History: Denies: Hx Dialysis, Hx Kidney Stones, Hx Renal Disease Musculoskeletal History: Denies: Hx Scoliosis Sensory History: Denies: Hx Hearing Aid Neurological History: Reports: Hx CVA - x 2, Hx Seizures - Manic episodes. Denies: Hx Dementia, Hx Headaches, Hx Migraine, Hx Transient Ischemic Attacks (TIA) Psychiatric History: Reports: Hx Anxiety, Hx Depression, Hx Panic Disorder, Hx Post Traumatic Stress Disorder, Hx Bipolar Disorder - takes depakote Denies: Hx Eating Disorder, Hx of Violent Episodes Against Others - Surgical History Surgery Procedure, Year, and Place: appendectomy 2002;. MIRENA IUD Hx Anesthesia Reactions: No - Immunization History Immunizations Up to Date: Yes Infectious Disease History: Yes Infectious Disease History: Reports: Hx of Known/Suspected MRSA Denies: Hx Clostridium Difficile, Hx Hepatitis, Hx Human Immunodeficiency Virus (HIV), Hx Shingles, Hx Tuberculosis, Hx Known/Suspected VRE, Hx Known/ Suspected VRSA, History Other Infectious Disease, Traveled Outside the [place] in Last 30 Days - Family History Known Family History: Positive: None, Hypertension, Other - gall bladder disease , Crohn's Negative: Cardiac Disease, Diabetes - Social History Occupation: Unemployed Lives: With Family Alcohol Use: None Hx Substance Use: Yes Substance Use Type: Reports: Marijuana Substance Use Comment - Amount & Last Used: States she smokes Marijuana ocassionally Hx Tobacco Use: Yes Smoking Status (MU): Heavy Every Day Tobacco Smoker Type: Cigarettes Amount Used/How Often: 1 ppd Have You Smoked in the Last Year: Yes Review of Systems Constitutional: Negative Negative: Fever, Chills, Fatigue, Skin Diaphoresis Eyes: Negative Cardiovascular: Negative Respiratory: Negative Positive: no symptoms reported, see HPI Musculoskeletal: Negative Positive: Other - diffuse skin lesions Neurological: Negative Psychological: Normal All Other Systems Reviewed And Are Negative: Yes Physical Exam Triage Information Reviewed: Yes Vital Signs On Initial Exam: Initial Vitals Temp Pulse Resp BP Pulse Ox 98.7 F 88 16 123/75 100 07/17/17 12:22 07/17/17 12:22 07/17/17 12:22 07/17/17 12:22 07/17/17 12:22 Vital Signs Reviewed: Yes Appearance: Positive: Well-Appearing, No Pain Distress, Well-Nourished Skin: Positive: Weeping Skin/Lesions, Other - abscess to the left elbow Head/Face: Positive: Normal Head/Face Inspection Eyes: Positive: EOMI, SHE, Conjunctiva Clear Neck: Positive: Supple, No Lymphadenopathy Respiratory/Lung Sounds: Positive: Clear to Auscultation, Breath Sounds Present Cardiovascular: Positive: RRR, Pulses are Symmetrical in both Upper and Lower Extremities Musculoskeletal: Positive: Strength/ROM Intact Neurological: Positive: Speech Normal Psychiatric: Positive: Normal, Affect/Mood Appropriate AVPU Assessment: Alert Diagnostics - Vital Signs Vital Signs Temp Pulse Resp BP Pulse Ox 07/17/17 12:22 98.7 F 88 16 123/75 100 - Laboratory Result Diagrams: 07/17/17 14:34 07/17/17 14:34 Lab Statement: Any lab studies that have been ordered have been reviewed, and results considered in the medical decision making process. Course/Dx - Course Course Of Treatment: During the course of treatment, treatment options were discussed at length with patient who is requesting an admission into the hospital. I have advised that due to no fever, sweats, chills or other systemic findings, I prefer at this time to treat as an outpatient. However, she is likely failing by mouth antibiotics and continues to have a left elbow abscess with purulent drainage. Labs obtained including blood cultures. Wound culture obtained and sent. Sensitivities will be run and will call patient with any results. She is given IV antibiotics vancomycin 1200 mg IV. After the course of antibiotics, it is noted that the patient's left forearm has worsening erythema and warmth compared with arrival. She continues to have stable vital signs and normal temperature. Failure of outpatient antibiotics warrants an [place] [facility] I have discussed the case with Dr. Barnett who agrees to see the patient. Wound cultures returned as MRSA positive. She will be admitted to the hospitalists service for IV antibiotics. - Diagnoses Provider Diagnoses: MRSA (methicillin resistant staph aureus) culture positive - Physician Notifications Discussed Care Of Patient With: Britta Barnett Instructed by Provider To: Admit As Inpatient Discharge - Discharge Plan Condition: Stable Disposition: ADMITTED TO [facility]
[2017-07-17 14:45] LABS: ABS Basophils 0 10^3/ul (0-0.2); ABS Eosinophils 0.1 10^3/ul (0-0.6); ABS Lymphocytes 1.8 10^3/ul (1.0-4.8); ABS Monocytes 0.6 10^3/ul (0-0.8); ABS Neutrophils 4.9 10^3/ul (1.5-7.7); ABS Nucleated RBC 0 10^3/ul; Eosinophil % 1.4 % (0-6); Hematocrit 42 % (35-47); Hemoglobin 14.2 g/dl (12.0-16.0); Mean Corpuscular HGB Conc 34 g/dl (31-36); Mean Corpuscular Hemoglobin 32 pg (27-31); Mean Corpuscular Volume 94 fL (80-97); Mean Platelet Volume 7 um3 (7.4-10.4); Nucleated Red Blood Cells % 0; Platelet Count 340 10^3/ul (150-450); Red Blood Count 4.49 10^6/ul (4.0-5.4); Red Cell Distribution Width 13 % (10.5-15); White Blood Count 7.4 10^3/ul (3.5-10.8)
[2017-07-17 15:11] LABS: EGFR Non-African American 95.7 (>60)
[2017-07-17] MEDS ORDERED: Acetaminophen TAB* 325 MG PO PRN (18:34)
[2017-07-17] MEDS ORDERED: Ondansetron INJ* 2 MG/ML VIAL IV PRN (18:34)
[2017-07-17] MEDS ORDERED: Vancomycin(*) 1,000 MG in NS 0.9% 250 ML* 250 ML IVPB SCH (19:00)
[2017-07-17] MEDS: NS 0.9% 1000 ML* 1,000 ML IV SCH (21:04)
[2017-07-17] MEDS: Heparin VIAL(*) 5000 UNITS/ML VIAL (FIVE THOUSAND) SUBCUT SCH (21:25)
[2017-07-17] MEDS ORDERED: Vancomycin per Pharmacy* NOTE FOLLOW UP PRN (21:33)
--- NOTE | 2017-07-17 23:07 | HP ---
CC: Dr. Borrero * HISTORY AND PHYSICAL: DATE OF ADMISSION: 07/17/17 PRIMARY CARE PROVIDER: Dr. Borrero. ATTENDING PHYSICIAN WHILE IN THE HOSPITAL: Britta Barnett DO * (report dictated by Diaz Tan NP). CHIEF COMPLAINT: Left elbow erythema and wound. HISTORY OF PRESENT ILLNESS: Mrs. Bruce is a 36-year-old female patient who carries a history of PTSD, history of PE, bipolar disorder, and history of tobacco abuse. She comes in today stating that her biggest complaint is on her left elbow she had a wound developed there. It is not sure how she developed the wound. She has several wounds to her forehead and to her left arm and to her neck that do appear to be abrasions. She was noted to have this wound, she not sure how it started, but she noticed that she was having erythema surrounding and she was having purulent discharge. She was concerned that it was becoming infected. She was seen here on the , was started on clindamycin, but despite this redness increased. She also states she has been having subjective chills and fevers at home. There has been no abdominal pain, vomiting, or diarrhea. She states in fact she feels constipated. She states that she has not had any chest pain or shortness of breath, but she was having discharge from the wound. She was noticing that there was redness increasing near the elbow and down into the forearm, so she was concerned and came into the hospital today because she almost finished the course of clindamycin. She does carry a history of MRSA. She was evaluated down here. There was concern that she had failed outpatient therapy and we were asked to evaluate for admission. PAST MEDICAL HISTORY: Significant for: 1. PE. 2. PTSD. 3. Bipolar. 4. Tobacco abuse. 5. History of MRSA. PAST SURGICAL HISTORY: The patient has had an appendectomy. MEDICATIONS: Home medications include: 1. Motrin 800 mg every 6 hours as needed. 2. She was going to be discharged on Bactroban, doxycycline, and Keflex, but we were asked to evaluate as there was concern because the redness was increasing again. ALLERGIES TO MEDICATIONS: Include no known drug allergies. FAMILY HISTORY: Both her parents have trouble with hypertension. SOCIAL HISTORY: She is a half-a-pack a day smoker. She does not drink alcohol. Surrogate decision maker is her father. She does smoke marijuana. REVIEW OF SYSTEMS: There is no documented fever here. She did admit to having chills at home, but again no documentation of fever. She denied having any significant weight change. There was no double vision, no ear discharge. She denies having any rhinorrhea. No sore throat. No thyroid enlargement. Denied having any chest pain. There was no orthopnea, no nocturnal dyspnea. There was no abdominal pain, no nausea, no vomiting. No dysuria, no frequency. No seizure, no loss of consciousness. No pruritus and no skin ulcerations. Review of 14 systems completed, all others negative. PHYSICAL EXAMINATION GENERAL: At this time, Mrs. Bruce is a 36-year-old female patient. She is sitting in the ED stretcher. She does not appear to be in any acute distress. VITAL SIGNS: Blood pressure 123/75, pulse 88, respirations 16, O2 sat 100%, temperature of 98.7. HEENT: Head: Atraumatic, normocephalic. Eyes: EOMs intact. Sclerae anicteric and not pale. Throat: Oral mucosa appears to be moist. No oropharyngeal erythema. NECK: Supple. LUNGS: Clear to auscultation bilaterally. No wheezes, rales, or rhonchi. HEART: Sounds S1, S2. Regular rate and rhythm. No murmurs, rubs, or gallops. ABDOMEN: Soft, flat, nontender. Bowel sounds present. EXTREMITIES: Pulses were 2+ throughout. Moving all 4 extremities with 5/5 strength. NEUROLOGIC: The patient is awake, alert, oriented x3. Tongue midline. Potato Inspector were equal. There is no gross focal deficits. SKIN: Intact with the exception to the left elbow she does have an open wound with erythema that extends down into the forearm. She does have full range of motion of her elbow with no pain on range of motion. The patient does have abrasions noted to her forehead, also to her right forearm area and to her chest as well. DIAGNOSTIC STUDIES/LAB DATA: Her labs revealed a WBC of 7.4, RBC of 4.49, hemoglobin of 14.2, hematocrit of 42, and platelet count of 340. ESR was 31. Sodium was 137, potassium of 4.2, chloride of 102, bicarb was 30, BUN 14, creatinine 0.69, glucose 112, lactate 1, calcium 9.7. Total bili 0.2, AST 11, ALT 12, alk phos 44. CRP 15. Albumin of 4.2. Beta hCG was 2.67. The patient' s old medical records were reviewed. ASSESSMENT AND PLAN: Mrs. Bruce is a 36-year-old female patient with multiple medical problems, coming into the ED today with concerning for cellulitis particularly any other joint, failing outpatient therapy. We were asked to evaluate for admission. She will be admitted under observation status for: 1. Cellulitis. Again at this point, I am concerned because it is near the joint, I would like to get IV antibiotics going for at least 24 hours. She does not appear to be septic. I feel like she did fail outpatient therapy. She does have a history of methicillin-resistant Staphylococcus aureus and clindamycin may not cover this. The plan will be to start her on vancomycin and get in touch with Dr. Cruz. She has full range of motion, so I do not think we need further imaging, but should she have pain with range of motion or any concerning findings, we would certainly get in touch with orthopedics. 2. Posttraumatic stress disorder and bipolar disorder. Continue with supportive care. 3. History of pulmonary embolism. She can follow with her primary. 4. History of tobacco abuse. We have offered smoking cessation. 5. DVT prophylaxis: She is high risk. I will place her heparin subcu. 6. Code status: Full code. 7. Fluids, electrolytes, and nutrition: She can have a regular diet. TIME SPENT: On admission was 60 minutes, greater than half the time was spent face- to-face with the patient obtaining my history and physical, other half time was spent going over the plan of care with the patient and implementing plan of care. I did discuss the plan of care with my attending, Dr. Barnett; she is in agreement. DIAZ TAN, TEZ [id number]/[facility] #: [id number] [place]
[2017-07-17] MEDS: oxyCODONE/Acetamin 5/325 MG* TAB PO PRN (23:21)
[2017-07-17] MEDS: Vancomycin(*) 1,000 MG in NS 0.9% 250 ML* 250 ML IVPB SCH (23:22)
[2017-07-18] MEDS: oxyCODONE/Acetamin 5/325 MG* TAB PO PRN ×4 (04:32→20:19)
[2017-07-18] MEDS: Heparin VIAL(*) 5000 UNITS/ML VIAL (FIVE THOUSAND) SUBCUT SCH ×3 (05:53→23:22)
[2017-07-18 06:18] LABS: ABS Basophils 0 10^3/ul (0-0.2); ABS Eosinophils 0.3 10^3/ul (0-0.6); ABS Lymphocytes 2.4 10^3/ul (1.0-4.8); ABS Monocytes 0.5 10^3/ul (0-0.8); ABS Neutrophils 2.7 10^3/ul (1.5-7.7); ABS Nucleated RBC 0 10^3/ul; Hematocrit 37 % (35-47); Hemoglobin 12.9 g/dl (12.0-16.0); Lymphocyte % 40.4 % (25-47); Mean Corpuscular HGB Conc 35 g/dl (31-36); Mean Corpuscular Hemoglobin 32 pg (27-31); Mean Corpuscular Volume 93 fL (80-97); Mean Platelet Volume 7 um3 (7.4-10.4); Nucleated Red Blood Cells % 0.1; Platelet Count 325 10^3/ul (150-450); Red Blood Count 4.02 10^6/ul (4.0-5.4); Red Cell Distribution Width 13 % (10.5-15); White Blood Count 5.9 10^3/ul (3.5-10.8)
[2017-07-18 06:29] LABS: INR 0.82 (0.77-1.02)
[2017-07-18 06:41] LABS: EGFR Non-African American 100.8 (>60)
[2017-07-18] MEDS: Vancomycin(*) 1,000 MG in NS 0.9% 250 ML* 250 ML IVPB SCH ×2 (08:31→17:34)
[2017-07-18] MEDS: NS 0.9% 1000 ML* 1,000 ML IV SCH ×2 (08:31→23:21)
[2017-07-18] MEDS ORDERED: Influenza VAC *QUAD* 2017-18* 0.5 ML SYRINGE IM ONE (09:00)
[2017-07-18] MEDS: Mouth Piece, Nicotine* 1 EACH CARTRIDGE INH PRN ×2 (12:35→17:34)
[2017-07-18] MEDS: Nicotine Inhaler* 10 MG AMP INH PRN ×2 (12:35→17:34)
[2017-07-18] MEDS ORDERED: Vancomycin Trough Check NOTE FOLLOW UP ONE (15:30)
[2017-07-18] MEDS ORDERED: Vancomycin(*) 1,250 MG in NS 0.9% 250 ML* 250 ML IVPB SCH (18:17)
--- NOTE | 2017-07-18 18:19 | PN ---
Subjective Date of Service: 07/18/17 Interval History: Patient states that the pain in her elbow is significantly decreased. Patient states she has had chills but denies subjective fever. Patient denies diarrhea, constipation, dizziness, CP, SOB, N/V, or other pain. Patient complains of burning pain centered on open areas over entire body though patient states that these are a chronic problem and that they are much improved over recently. Patient states that these open areas start with a black center that rises up from inside her skin that she then has to pick out and is "hard like a rock." Patient states that she has had numerous medical problems including heart valve problems, heart failure, kidney failure, joint swelling, severe abdominal swelling, fatigue and extreme pain, none of which are able to be verified in the medical record. Patient also states that she has been "kicked out" of several hospitals due to perceived non-compliance with drug testing. Patient delivers all this in a pressured manner. Family History: Unchanged from Admission Social History: Unchanged from Admission Past Medical History: Unchanged from Admission Objective Active Medications: Acetaminophen (Tylenol Tab*) 650 mg PO Q4H PRN PRN Reason: FEVER/PAIN Device (Nicotine Mouth Piece*) 1 each INH .USE WITH NICOTROL PRN PRN Reason: CRAVING Last Admin: 07/18/17 17:34 Dose: 1 each Heparin Sodium (Porcine) (Heparin Vial(*)) 5,000 units SUBCUT Q8HR [facility] Last Admin: 07/18/17 14:52 Dose: 5,000 units Sodium Chloride (Ns 0.9% 1000 Ml*) 1,000 mls @ 100 mls/hr IV PER RATE [facility] Last Admin: 07/18/17 08:31 Dose: 100 mls/hr Vancomycin HCl 1,000 mg/ (Sodium Chloride) 250 mls @ 166.667 mls/hr IVPB Q8H [facility] Last Admin: 07/18/17 17:34 Dose: 166.667 mls/hr Nicotine (Nicotine Inhaler*) 10 mg INH Q2H PRN PRN Reason: CRAVING Last Admin: 07/18/17 17:34 Dose: 10 mg Ondansetron HCl (Zofran Inj*) 4 mg IV Q6H PRN PRN Reason: NAUSEA Oxycodone/Acetaminophen (Percocet 5/325 Tab*) 1 tab PO Q4H PRN PRN Reason: PAIN Last Admin: 07/18/17 14:52 Dose: 1 tab Pharmacy Consult (Vancomycin Per Pharmacy*) 1 note FOLLOW UP . PRN PRN Reason: PER PROTOCOL Vital Signs - 8 hr 07/18/17 07/18/17 14:52 15:33 Temperature 98.0 F Pulse Rate 75 Respiratory 20 16 Rate Blood Pressure 112/76 (mmHg) O2 Sat by Pulse 100 Oximetry Oxygen Devices in Use Now: None Appearance: Patient is a 36yo female who appears older than stated age and is sitting in the bed in NAD. Eyes: No Scleral Icterus, PERRLA Ears/Nose/Mouth/Throat: NL Teeth, Lips, Gums, Clear Oropharnyx, Mucous Membranes Moist Neck: NL Appearance and Movements; NL JVP, Trachea Midline Respiratory: Symmetrical Chest Expansion and Respiratory Effort, Clear to Auscultation Cardiovascular: NL Sounds; No Murmurs; No JVD, RRR, No Edema Abdominal: NL Sounds; No Tenderness; No Distention, No Hepatosplenomegaly Lymphatic: No Cervical Adenopathy Extremities: No Edema, No Clubbing, Cyanosis Skin: No Nodules or Sclerosis, - - Small ulcers with scabbing in various stages of healing over B/L upper arms, face and chest. Large area of erythema on left elbow with moist purulent center which is significantly receded from line drawn yesterday. Pock-arpit scars over entire body. Neurological: Alert and Oriented x 3, NL Sensation, NL Muscle Strength and Tone Result Diagrams: 07/18/17 05:54 07/18/17 05:54 Assess/Plan/Problems-Billing Assessment: Patient is a 36yo female with a PMH significant for PTSD, Bipolar I, Skin infections, Possible Seizure, PE and previous methamphetamine abuse who presents with left arm cellulitis with no signs of deeper infection which is improving with IV antibiotics. - Patient Problems (1) Cellulitis Current Visit: Yes Status: Acute Code(s): L03.90 - CELLULITIS, UNSPECIFIED SNOMED Code(s): 921540913 Comment: Improving greatly on Vancomycin. Failed previous outpatient treatment with clindamycin. Likely superinfection on chronic ulcers. Patient is concerned about immune deficiency. Recommend follow up outpatient. Will transition to oral antibiotics when sensitvities return. (2) Methamphetamine abuse Current Visit: Yes Status: Acute Code(s): F15.10 - OTHER STIMULANT ABUSE, UNCOMPLICATED SNOMED Code(s): 803829282 Comment: Patient states she has not used in 2 years, but had a positive test 6 months ago. (3) PTSD (post-traumatic stress disorder) Current Visit: Yes Status: Acute Code(s): F43.10 - POST-TRAUMATIC STRESS DISORDER, UNSPECIFIED SNOMED Code(s): 02617708 Comment: Supportive care. (4) Bipolar 1 disorder Current Visit: No Status: Acute Code(s): F31.9 - BIPOLAR DISORDER, UNSPECIFIED SNOMED Code(s): 713114433 Comment: Treatment discussed with patient. Patient appears manic. Patient discontinued all meds recently. Would recommend restarting outpatient. Patient is not amenable at this time. (5) Pulmonary embolism Current Visit: No Status: Acute Code(s): I26.99 - OTHER PULMONARY EMBOLISM WITHOUT ACUTE COR PULMONALE SNOMED Code(s): 36265541 Comment: History of PE. No current anticoagulation. (6) Tobacco abuse Current Visit: No Status: Acute Code(s): Z72.0 - TOBACCO USE SNOMED Code(s ): 256674433 Comment: Pt advised to quit smoking and avoid second hand smoke. Nicotine inahler ordered. (7) Full code status Current Visit: Yes Status: Acute Code(s): Z78.9 - OTHER SPECIFIED HEALTH STATUS SNOMED Code(s): 765967063 (8) DVT prophylaxis Current Visit: Yes Status: Acute Code(s): GAS2938 - SNOMED Code(s): 417349961 Comment: SCDs. Status and Disposition: Patient is admitted inpatient.
--- NOTE | 2017-07-18 20:57 | CONS ---
CONSULTATION REPORT: DATE OF CONSULTATION: 07/18/17 REQUESTING PROVIDER: ABDIAS Gamino. CONSULTING SERVICE: Infectious Disease. REASON FOR CONSULTATION: Left arm cellulitis. IMPRESSION: 1. Left arm cellulitis and a non-healing non-pressure related wound. Wound culture has grown MRSA. She has had significant improvement on vancomycin. She does not have any signs or symptoms of joint space involvement. 2. Posttraumatic stress disorder. 3. Bipolar disorder. RECOMMENDATIONS: I agree with vancomycin and reassess tomorrow. If she is continuing to make significant improvement, I could change her oral antibiotics either doxycycline or Bactrim depending on the sensitivity that it comes back. HISTORY OF PRESENT ILLNESS: This is a 36-year-old woman with bipolar disorder admitted with left elbow pain and redness. She has a history of recurrent skin lesions, for which she has seen me in the past and dermatologists without suspicion of an underlying pathology that causes it. She occasionally has infections of the skin associated with these wounds. She has had redness, swelling and pain around the left elbow for the last few days with some chills and sweats at home. She was taking clindamycin as an outpatient after being seen in the ER. She noticed continuing spread of the redness and pain. She was seen yesterday in the ER. She was started on vancomycin. Today, the redness has much improved as is the swelling. She has no pain with range of motion of her elbows and she never did. PAST MEDICAL HISTORY: 1. PTSD. 2. Bipolar disorder. 3. Tobacco abuse. 4. Past MRSA infection. 5. Pulmonary embolus. 6. Status post appendectomy. MEDICATIONS: 1. Tylenol. 2. Heparin subcutaneous injection. 3. Nicotine inhaler. 4. Vancomycin 1 g every 8 hours. ALLERGIES: No known drug allergies. FAMILY HISTORY: Noncontributory. SOCIAL HISTORY: She is a nonsmoker. She uses marijuana, does not drink alcohol. REVIEW OF SYSTEMS: A 14-point review of systems is negative except as noted above. PHYSICAL EXAMINATION: Vital Signs: Temperature 36.4, heart rate 66, respiratory rate 16, blood pressure 90/60, oxygen saturation is 100% on room air. In general, she is awake, not in distress. Neurologic: She is oriented x3. Follows all commands. HEENT: There is no conjunctival hemorrhage. Oropharynx is without lesions. Neck: Supple. Heart: Regular rate and rhythm. Lungs: Clear to auscultation bilaterally. Abdomen: Soft, nontender, nondistended. There are bowel sounds present. Skin: There are no splinter hemorrhages, left lateral elbow 5 mm ulcerations surrounding rim of erythema withdrawn from the outlined area. Musculoskeletal: No left elbow tenderness or decreased range of motion. LABORATORY DATA: White blood cell count 5.9, hemoglobin 12.9, platelets 325, creatinine 0.6, CRP 15. Please see impression and recommendations outlined above, which I have discussed with ABDIAS Lorenzana. Thank you for asking me to see Ms. Bruce in consultation. [id number]/[facility] #: [id number] MTDD
[2017-07-18] MEDS: Vancomycin(*) 1,250 MG in NS 0.9% 250 ML* 250 ML IVPB SCH (23:21)
[2017-07-19] MEDS: oxyCODONE/Acetamin 5/325 MG* TAB PO PRN ×4 (01:22→21:37)
[2017-07-19] MEDS: Heparin VIAL(*) 5000 UNITS/ML VIAL (FIVE THOUSAND) SUBCUT SCH ×3 (05:44→21:37)
[2017-07-19 06:49] LABS: ABS Basophils 0 10^3/ul (0-0.2); ABS Eosinophils 0.2 10^3/ul (0-0.6); ABS Lymphocytes 1.8 10^3/ul (1.0-4.8); ABS Monocytes 0.4 10^3/ul (0-0.8); ABS Nucleated RBC 0 10^3/ul; Eosinophil % 3.5 % (0-6); Hematocrit 37 % (35-47); Hemoglobin 12.6 g/dl (12.0-16.0); Lymphocyte % 28.1 % (25-47); Mean Corpuscular HGB Conc 34 g/dl (31-36); Mean Corpuscular Hemoglobin 32 pg (27-31); Mean Corpuscular Volume 94 fL (80-97); Mean Platelet Volume 7 um3 (7.4-10.4); Nucleated Red Blood Cells % 0.1; Platelet Count 284 10^3/ul (150-450); Red Blood Count 3.93 10^6/ul (4.0-5.4); Red Cell Distribution Width 14 % (10.5-15); White Blood Count 6.5 10^3/ul (3.5-10.8)
[2017-07-19 06:58] LABS: EGFR Non-African American 121.8 (>60)
[2017-07-19] MEDS: Vancomycin(*) 1,250 MG in NS 0.9% 250 ML* 250 ML IVPB SCH (07:54)
[2017-07-19] MEDS: Nicotine Inhaler* 10 MG AMP INH PRN ×2 (12:51→16:30)
--- NOTE | 2017-07-19 14:47 | PN ---
Subjective Date of Service: 07/19/17 Interval History: Patient states she has been sleeping better than she has in a long time. Patient states that all of her lesions are receding quickly. Patient states that she has no more pain in her elbow. Patient states that she has been controlling her moods with herbal remedies at home, but that her family thinks she should be on a mood stabilizer due to severe mood swings and irritability. Patient states that she has previously been on Seroquel 400mg for insomnia. Patient denies F/C, N/V, Abdominal pain, CP, SOB. Patient noticed a small papular rash on her hand near the site of vancomycin infusion. The infusion was switched to her other arm and finished, after which patient felt a rash on her stomach. Patient states the rash was painful but did not itch. Family History: Unchanged from Admission Social History: Unchanged from Admission Past Medical History: Unchanged from Admission Objective Active Medications: Acetaminophen (Tylenol Tab*) 650 mg PO Q4H PRN PRN Reason: FEVER/PAIN Device (Nicotine Mouth Piece*) 1 each INH .USE WITH NICOTROL PRN PRN Reason: CRAVING Last Admin: 07/18/17 17:34 Dose: 1 each Doxycycline Hyclate (Vibramycin Cap(*)) 100 mg PO BID [facility] Heparin Sodium (Porcine) (Heparin Vial(*)) 5,000 units SUBCUT Q8HR [facility] Last Admin: 07/19/17 12:52 Dose: 5,000 units Nicotine (Nicotine Inhaler*) 10 mg INH Q2H PRN PRN Reason: CRAVING Last Admin: 07/19/17 12:51 Dose: 10 mg Ondansetron HCl (Zofran Inj*) 4 mg IV Q6H PRN PRN Reason: NAUSEA Oxycodone/Acetaminophen (Percocet 5/325 Tab*) 1 tab PO Q4H PRN PRN Reason: PAIN Last Admin: 07/19/17 10:22 Dose: 1 tab Quetiapine Fumarate (Seroquel Tab*) 200 mg PO BEDTIME [facility] Vital Signs - 8 hr 07/19/17 07/19/17 07/19/17 07:30 08:00 10:22 Temperature 98.0 F Pulse Rate 68 Respiratory 16 16 16 Rate Blood Pressure 102/65 (mmHg) O2 Sat by Pulse 100 Oximetry 07/19/17 07/19/17 11:29 12:52 Temperature 98.1 F Pulse Rate 68 Respiratory 18 18 Rate Blood Pressure 107/58 (mmHg) O2 Sat by Pulse 100 Oximetry Oxygen Devices in Use Now: None Appearance: Patient is a 36yo female who appears older than stated age and is sitting in the bed in NAD. Eyes: No Scleral Icterus, PERRLA Ears/Nose/Mouth/Throat: NL Teeth, Lips, Gums, Clear Oropharnyx, Mucous Membranes Moist Neck: NL Appearance and Movements; NL JVP, Trachea Midline Respiratory: Symmetrical Chest Expansion and Respiratory Effort, Clear to Auscultation Cardiovascular: NL Sounds; No Murmurs; No JVD, RRR, No Edema Abdominal: NL Sounds; No Tenderness; No Distention, No Hepatosplenomegaly Lymphatic: No Cervical Adenopathy Extremities: No Edema, No Clubbing, Cyanosis Skin: No Nodules or Sclerosis, - - Numerous open areas in various staged of healing on arms, face, chest, and foot. Large open area on elbow with slight amount of purulent drainage from the center. Improved from previous exams. Neurological: Alert and Oriented x 3, NL Sensation, NL Muscle Strength and Tone , - - CN II-XII intact. No pressured speech today. Result Diagrams: 07/19/17 06:22 07/19/17 06:22 Assess/Plan/Problems-Billing Assessment: Patient is a 36yo female with a PMH significant for PTSD, Bipolar I, Skin infections, Possible Seizure, PE and previous methamphetamine abuse who presents with left arm cellulitis with no signs of deeper infection which is improving with IV antibiotics. - Patient Problems (1) Cellulitis Current Visit: Yes Status: Acute Code(s): L03.90 - CELLULITIS, UNSPECIFIED SNOMED Code(s): 183942412 Comment: Improving greatly on Vancomycin. Failed previous outpatient treatment with clindamycin. Likely superinfection on chronic ulcers. Patient is concerned about immune deficiency. Recommend follow up outpatient. Possible reaction to vancomycin. Switched to doxycycline to which the MRSA is susceptible. Will monitor overnight for improvement. (2) Methamphetamine abuse Current Visit: Yes Status: Acute Code(s): F15.10 - OTHER STIMULANT ABUSE, UNCOMPLICATED SNOMED Code(s): 427874389 Comment: Patient states she has not used in 2 years, but had a positive test 6 months ago. (3) PTSD (post-traumatic stress disorder) Current Visit: Yes Status: Acute Code(s): F43.10 - POST-TRAUMATIC STRESS DISORDER, UNSPECIFIED SNOMED Code(s): 14778927 Comment: Supportive care. (4) Bipolar 1 disorder Current Visit: No Status: Acute Code(s): F31.9 - BIPOLAR DISORDER, UNSPECIFIED SNOMED Code(s): 010035143 Comment: Treatment discussed with patient. Patient appears manic. Patient discontinued all meds recently. Patient amenable to restarting seroquel for sleep and mood stabilization. (5) Pulmonary embolism Current Visit: No Status: Acute Code(s): I26.99 - OTHER PULMONARY EMBOLISM WITHOUT ACUTE COR PULMONALE SNOMED Code(s): 09450041 Comment: History of PE. No current anticoagulation. No signs of DVT or PE. (6) Tobacco abuse Current Visit: No Status: Acute Code(s): Z72.0 - TOBACCO USE SNOMED Code(s ): 007321302 Comment: Pt advised to quit smoking and avoid second hand smoke. Nicotine inahler ordered. (7) Full code status Current Visit: Yes Status: Acute Code(s): Z78.9 - OTHER SPECIFIED HEALTH STATUS SNOMED Code(s): 675568718 (8) DVT prophylaxis Current Visit: Yes Status: Acute Code(s): OUT1767 - SNOMED Code(s): 134586142 Comment: SCDs and Heparin SubQ. Status and Disposition: Patient is admitted inpatient. Hopeful discharge tomorrow.
[2017-07-19] MEDS: DOXYcycline CAP(*) 100 MG PO SCH (20:14)
[2017-07-19] MEDS ORDERED: QUEtiapine TAB* 100 MG PO SCH (21:00)
[2017-07-20] MEDS: Heparin VIAL(*) 5000 UNITS/ML VIAL (FIVE THOUSAND) SUBCUT SCH (05:46)
[2017-07-20] MEDS: oxyCODONE/Acetamin 5/325 MG* TAB PO PRN (05:46)
[2017-07-20 07:40] LABS: ABS Basophils 0 10^3/ul (0-0.2); ABS Eosinophils 0.2 10^3/ul (0-0.6); ABS Lymphocytes 1.6 10^3/ul (1.0-4.8); ABS Monocytes 0.6 10^3/ul (0-0.8); ABS Neutrophils 2.8 10^3/ul (1.5-7.7); ABS Nucleated RBC 0 10^3/ul; Hematocrit 38 % (35-47); Hemoglobin 12.8 g/dl (12.0-16.0); Lymphocyte % 30.3 % (25-47); Mean Corpuscular HGB Conc 34 g/dl (31-36); Mean Corpuscular Hemoglobin 32 pg (27-31); Mean Corpuscular Volume 93 fL (80-97); Mean Platelet Volume 7 um3 (7.4-10.4); Nucleated Red Blood Cells % 0; Platelet Count 273 10^3/ul (150-450); Red Blood Count 4.03 10^6/ul (4.0-5.4); Red Cell Distribution Width 14 % (10.5-15); White Blood Count 5.2 10^3/ul (3.5-10.8)
[2017-07-20] MEDS ORDERED: Vancomycin Trough Check NOTE FOLLOW UP ONE (08:00)
[2017-07-20] MEDS: DOXYcycline CAP(*) 100 MG PO SCH (08:01)
[2017-07-20 08:04] VITALS: BP 98/46
--- NOTE | 2017-07-21 02:30 | DS ---
CC: Dr. Nuha Borrero * DISCHARGE SUMMARY: DATE OF ADMISSION: 07/17/17 DATE OF DISCHARGE: 07/20/17 PRIMARY CARE PROVIDER: Dr. Nuha Borrero. MY ATTENDING WHILE IN THE HOSPITAL: Dr. Russ Mendoza.* (DICTATED BY ABDIAS GONCALVES) CONSULTING PROVIDER: Nasir Cruz MD, Infectious Disease. PRIMARY DISCHARGE DIAGNOSES: 1. Left elbow cellulitis. 2. Bipolar disorder. SECONDARY DISCHARGE DIAGNOSES: 1. History of pulmonary embolism. 2. Posttraumatic stress disorder. 3. History of methamphetamine abuse. STUDIES DONE WHILE IN THE HOSPITAL: None. MEDICATIONS AT DISCHARGE: 1. Motrin 800 mg p.o. q.6 hours as needed. 2. Doxycycline 100 mg p.o. b.i.d. x20. 3. Quetiapine 200 mg p.o. at bedtime. New medications at discharge: 1. Doxycycline. 2. Quetiapine. Medications discontinued at discharge: None. HOSPITAL COURSE: This is a brief summary of the patient's presentation. For more detail, please see the history and physical from [facility] on . In brief, the patient is a 36-year-old female with past medical history significant for the above, who presented to the emergency department with wound on her left elbow with streaking and purulent discharge. The patient was started on clindamycin on the and took a full course, but there was no response from her wound. The patient had fevers and chills at home. The patient had no other systemic symptoms. The patient was admitted to the hospital due to treatment failure. The patient was started on vancomycin, improved greatly overnight. The patient had no reaction to this treatment. The patient had no fevers while in the hospital. The patient responded well with the erythema in her elbow decreasing significantly over the first 12 hours. The patient was seen in consultation by Dr. Cruz, who stated that this was likely due to just likely MRSA cellulitis and to continue with vancomycin until sensitivities came back on MRSA from her elbow. The patient was concerned because she has had a long-term history of lesions on her skin, which she says dart with black material that rows up from inside her skin and erupts through and is some times hard and has been picked out. The patient states she has seen a two needle machine operator previously and had no results and that these wounds come and go quickly and that she has not had any other symptoms with them, but had a plethora of generic somatic complaints such as pain in her legs, swelling. The patient also stated that she had kidney failure, liver failure, small bowel obstruction, none of which is corroborated by her medical record; however, she states these all happened at different institutions. The patient states she used methamphetamine and had not used them in 2 years and that she currently uses marijuana infrequently. The patient states she discontinued all her medications for her bipolar disorder. She has been on lithium and Depakote and uses herbal remedies, but states that she has been having significant mood swings at home and her family has been encouraging her to resume mood stabilizing agents. The patient used to be on quetiapine for sleep. The patient was amenable to restarting this while in the hospital. The patient was restarted on quetiapine for sleep and mood stabilization the evening of 07/19/17. The patient was also switched from vancomycin to doxycycline on the evening of 07/19/17. The patient tolerated this well; however, with the patient's last vancomycin infusion, she developed a maculopapular rash on the arm where most of the infusion was infused. It then spread to the left side of her abdomen. It was not itchy. The patient said it burned initially mainly around the IV site, but that the rash itself was otherwise asymptomatic. In the morning of 07/20/17, this rash was found to be over her entire body, but the patient had no signs of hypotension, no itching from the rash and no other symptoms. The patient stated that she wanted to go home and the patient was discharged on doxycycline as above and on quetiapine, which she tolerated well, helped with her sleep and it is for mood stabilization. PHYSICAL EXAMINATION ON THE DAY OF DISCHARGE: General: The patient is a 36- year- old female who appears older than stated age, sitting comfortably in the bed, in no acute distress. Vital Signs: Temperature 97.8, pulse rate 64, respiratory rate 18, oxygen saturation 98% on room air, blood pressure 98/46. HEENT: Head: Normocephalic, atraumatic. Sclerae anicteric. No conjunctival injection. Nasal mucosa moist. Oral mucosa moist. The patient has large number of pockmarks and wounds in various stages of healing on her face, cheeks , and neck. Neck: Supple, nontender. No lymphadenopathy. No carotid bruit auscultated. Cardiac: Regular rate and rhythm. No clicks, murmurs, gallops, or rubs. Pulses 2+ in bilateral dorsalis pedis, posterior tibialis, and radial areas. No edema noted bilaterally. Respiratory: Clear to auscultation bilaterally. No wheezes, rales, or rhonchi. Abdomen: Soft, nontender, nondistended. Bowel sounds present and normoactive in all 4 quadrants. No hepatosplenomegaly. No abdominal bruits auscultated. Skin: The patient has numerous open areas in various stages of healing throughout her body, which are significantly improved over the course of her hospitalization. The patient also has a large area of erythema with purulent drainage from its center on her left elbow, which is also significantly improved over the course of the 2 days of her hospitalization. The patient has no streaking and significantly decreased tenderness around this area. Neuro: Cranial nerves II through XII intact. No focal deficits. Alert and oriented x3. Psychiatric: The patient is pleasant and cooperative, occasionally exhibiting pressured speech and tangential thought processes, improved from initial examination on 07/18/17. LABORATORY DATA FROM ADMISSION: Values of note, CRP 15.21 on admission, lactic acid 1.0. No other significant abnormalities. DISCHARGE PLAN: The patient will be discharged to home on doxycycline for her MRSA cellulitis, which was susceptible with an BILL of less than 1. The patient should follow up with her primary care doctor within 1 week for general medical management and to document continue improvement of her infection. The patient should also return to her psychiatrist for mood stabilizing medication and supportive care. The patient should return to the hospital for alarming symptoms such as chest pain, shortness of breath, significant worsening of her rash, fever, unresponsive to medications Tylenol, syncope, or other symptoms. The patient recommended to follow up with her two needle machine operator and recommended biopsy of one of her skin lesions to determine if there is underlying pathology other than psychogenic picking. The patient is advised to quit smoking and to abstain from methamphetamine use. ACTIVITY: As tolerated. DIET: Regular unrestricted diet. TIME SPENT: Approximately 60 minutes was spent on this discharge, 30 of which was spent [id number] with the patient obtaining history and physical and discussing treatment plan. ABDIAS GONCALVES [id number]/[facility] #: [id number] [place]
== END 2017-07-20 11:30 | disposition home or self-care (01) | DRG 383 ==
LOC: ED 11:56 → MED 18:30 → OBSVTOIN 07-18 13:30
PROVIDERS: ADMIT Hospitalist; ATTEND Internal Medicine
DX: L03.114 Cellulitis of left upper limb (principal); B95.62 Methicillin resistant Staphylococcus aureus infection as the cause of diseases classified elsewhere; F31.9 Bipolar disorder, unspecified; F17.210 Nicotine dependence, cigarettes, uncomplicated; F43.10 Post-traumatic stress disorder, unspecified; S00.81XA Abrasion of other part of head, initial encounter; S50.811A Abrasion of right forearm, initial encounter; S20.319A Abrasion of unspecified front wall of thorax, initial encounter; F15.11 Other stimulant abuse, in remission; X58.XXXA Exposure to other specified factors, initial encounter; Y92.9 Unspecified place or not applicable; Z79.1 Long term (current) use of non-steroidal anti-inflammatories (NSAID); Z86.711 Personal history of pulmonary embolism; Z82.49 Family history of ischemic heart disease and other diseases of the circulatory system
CPT/HCPCS: 36415; 80048; 80053; 80202; 83605; 84702; 85025; 85610; 85652; 86140; 87040; 87070; 87077; 87186; 87205; 87640; 87641; 90686; 99282; A9270-GY; G0378; J1644; J3370

== ENCOUNTER 2017-09-24 17:27 | Emergency (ER) | payer OTHER ==
[2017-09-24 17:41] VITALS: BP 122/60
[2017-09-24] MEDS ORDERED: Lidocaine 2% PF * 5 ML VIAL ONE (17:42)
[2017-09-24] MEDS ORDERED: Ibuprofen TAB* 400 MG PO ONE (17:52)
--- NOTE | 2017-09-24 18:59 | ED ---
Skin Complaint - HPI Summary HPI Summary: Rt hand dominant pt here w/ abscess on forearm. Has had this for a couple of days - drained while in tub last night but filled right back up - still has an opening over wound. Redness, swelling, pain, drainage. Feels ill in general but denies fever, chills, nausea, vomiting, headache. Started taking an old clindamycin anbx pawel this started. 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 Has been seen by PCP and other specialists - has implemented hibaclens body wash with oral antibiotics without improvement - in fact, reports she developed sepsis. - History of Current Complaint Chief Complaint: UCSkin Time Seen by Provider: 09/24/17 17:52 Stated Complaint: RASH Hx Obtained From: Patient, Family/[employer] - young man is w/ her Hx Last Menstrual Period: iud Pain Intensity: 7 - Additional Pertinent History Primary Care Physician: VONDA - Allergy/Home Medications Allergies/Adverse Reactions: Allergies Allergy/AdvReac Type Severity Reaction Status Date / Time vancomycin Allergy Rash Verified 09/24/17 17:34 Home Medications: Home Medications QUEtiapine TAB* [Seroquel TAB*] 100 mg PO BEDTIME 09/24/17 [History Confirmed ] PMH/Surg Hx/FS Hx/Imm Hx Previously Healthy: No - chronic, recurring MRSA infections Endocrine/Hematology History: Reports: Hx Blood Disorders - h/o sepsis Denies: Hx Anticoagulant Therapy, Hx Diabetes, Hx Thyroid Disease Cardiovascular History: Reports: Hx Deep Vein Thrombosis, Hx Embolism Denies: Hx Congestive Heart Failure, Hx Hypertension, Hx Myocardial Infarction, Hx Pacemaker/ICD Respiratory History: Reports: Hx Pulmonary Embolism, Hx Sleep Apnea, Other Respiratory Problems/Disorders - HX OF BILATERAL PE'S Denies: Hx Asthma, Hx Chronic Obstructive Pulmonary Disease (COPD), Hx Lung Cancer, Hx Pneumonia GI History: Denies: Hx Gall Bladder Disease, Hx Gastrointestinal Bleed, Hx Ulcer, Hx Urosepsis History: Denies: Hx Dialysis, Hx Kidney Stones, Hx Renal Disease Musculoskeletal History: Denies: Hx Scoliosis Sensory History: Denies: Hx Contacts or Glasses, Hx Hearing Aid Opthamlomology History: Denies: Hx Contacts or Glasses Neurological History: Reports: Hx CVA - x 2, Hx Seizures Denies: Hx Dementia, Hx Headaches, Hx Migraine, Hx Transient Ischemic Attacks (TIA) Psychiatric History: Reports: Hx Anxiety, Hx Depression, Hx Panic Disorder, Hx Post Traumatic Stress Disorder, Hx Bipolar Disorder Denies: Hx Eating Disorder, Hx of Violent Episodes Against Others - Surgical History Surgery Procedure, Year, and Place: appendectomy 2002; Hx Anesthesia Reactions: No Infectious Disease History: Yes Infectious Disease History: Reports: Hx of Known/Suspected MRSA Denies: Hx Clostridium Difficile, Hx Hepatitis, Hx Human Immunodeficiency Virus (HIV), Hx Shingles, Hx Tuberculosis, Hx Known/Suspected VRE, Hx Known/ Suspected VRSA, History Other Infectious Disease, Traveled Outside the [place] in Last 30 Days - Family History Known Family History: Positive: Hypertension, Other - gall bladder disease, Crohn's Negative: Cardiac Disease, Diabetes - Social History Lives: With Family Alcohol Use: None Hx Substance Use: Yes Substance Use Type: Reports: Marijuana - States she smokes Marijuana ocassionally for insomnia, Other - methamphetamines Hx Tobacco Use: Yes Smoking Status (MU): Current Every Day Smoker Type: Cigarettes Amount Used/How Often: 1 ppd Have You Smoked in the Last Year: Yes Review of Systems Positive: Fatigue. Negative: Fever, Chills Skin: Other - wound Rt Neurological: Negative Psychological: Normal All Other Systems Reviewed And Are Negative: Yes Physical Exam Triage Information Reviewed: Yes Vital Signs On Initial Exam: Initial Vitals Temp Pulse Resp BP Pulse Ox 99.2 F 94 18 122/60 100 09/24/17 17:33 09/24/17 17:33 09/24/17 17:33 09/24/17 17:33 09/24/17 17:33 Vital Signs Reviewed: Yes Appearance: Positive: Well-Appearing, Well-Nourished, Pain Distress Skin: Positive: Warm Head/Face: Positive: Normal Head/Face Inspection ENT: Positive: Hearing grossly normal Respiratory/Lung Sounds: Positive: Breath Sounds Present Cardiovascular: Positive: Pulses are Symmetrical in both Upper and Lower Extremities Musculoskeletal: Positive: Normal, Strength/ROM Intact Neurological: Positive: Normal, Sensory/Motor Intact, Alert, Oriented to Person Place, Time, CN Intact II-III Psychiatric: Positive: Normal Procedures - Incision and Drainage Site: Rt forearm Anesthesia: Lidocaine - 1% - 5cc Instrument(s): Scalpel - #11 Packing: Gauze - 1/4" plain Diagnostics - Vital Signs Vital Signs Temp Pulse Resp BP Pulse Ox 09/24/17 17:33 99.2 F 94 18 122/60 100 - Laboratory Lab Statement: Any lab studies that have been ordered have been reviewed, and results considered in the medical decision making process. Re-Evaluation - Re-Evaluation First Eval Change: Improved Course/Dx - Course Course Of Treatment: Pt's wound is already draining. Anesthetized the area and broke up some loculations, debriding the wound. Flushed w/ sterile saline and packed with gauze - discussed wound care and close f/u w/ PCP as she has h/o MRSA skin infections and sepsis. Offered more in depth evaluation at the ED however pt declined. She is aware that she could have septecemia and that this cannot be fully diagnosed or identified in our clinic - that an ED visit would provide a more thorough evaluation. She is aware of the danger s/sx of when to go to ED and agrees w/ plan. - Diagnoses Provider Diagnoses: Abscess of right forearm Discharge - Sign-Out/Discharge Documenting (check all that apply): Discharge - Discharge Plan Condition: Stable Disposition: HOME Prescriptions: Fluconazole [Fluconazole 150 mg tab] 150 mg PO ONCE #1 tab Fluconazole 100 MG TAB* [Diflucan 100 MG TAB*] 150 mg PO DAILY PRN #1 tab PRN Reason: Itching Sulfamethox/Trimethoprim DS* [Bactrim DS 800/160 TAB*] 1 tab PO BID #24 tab Sulfamethox/Trimethoprim DS* [Bactrim DS 800/160 TAB*] 1 tab PO BID #24 tab MDD 2 Patient Education Materials: Abscess (ED) Referrals: Nuha Borrero MD [Primary Care Provider] - Additional Instructions: Keep dressing in place until seen by PCP tomorrow for follow-up. Call in the morning to schedule an appointment. Keep are rested, elevated and apply eat to encourage drainage. Take ibuprofen with food as needed for pain, swelling. Complete antibiotics as directed - take 2 pills 2 x day for 2 days then 1 tab 2 x day for remaining days. *If you develop fever, chills, vomiting, headache, weakness, or wound bleeds and is not controlled by pressure and elevation, go to the ED - Billing Disposition and Condition Condition: STABLE Disposition: HOME
== END 2017-09-24 18:30 | disposition home or self-care (01) ==
LOC: UCEAST 17:27
DX: L02.413 Cutaneous abscess of right upper limb (principal); B95.62 Methicillin resistant Staphylococcus aureus infection as the cause of diseases classified elsewhere; Z86.718 Personal history of other venous thrombosis and embolism; Z86.711 Personal history of pulmonary embolism; Z86.73 Personal history of transient ischemic attack (TIA), and cerebral infarction without residual deficits; R56.9 Unspecified convulsions; F41.0 Panic disorder [episodic paroxysmal anxiety]; F32.9 Major depressive disorder, single episode, unspecified; Z88.1 Allergy status to other antibiotic agents; F17.210 Nicotine dependence, cigarettes, uncomplicated
CPT/HCPCS: 10060; 87070; 87205; 87640; 87641; 99212; G0463

== ENCOUNTER 2018-10-13 13:20 | Emergency (ER) | payer SELFPAY ==
[2018-10-13] MEDS ORDERED: Lidocaine 2.5%/Prilocain 2.5%* 5 GM TUBE TOPICAL ONE ×2 (16:12→16:15)
[2018-10-13] MEDS ORDERED: Lidocaine 1% INJ* 10 MG/ML 30 ML SDV INJ ONE (17:21)
[2018-10-13 17:41] LABS: ABS Basophils 0 10^3/ul (0-0.2); ABS Eosinophils 0.1 10^3/ul (0-0.6); ABS Monocytes 0.5 10^3/ul (0-0.8); ABS Nucleated RBC 0 10^3/ul; Eosinophil % 1.2 %; Hematocrit 40 % (33-41); Hemoglobin 13.5 g/dL (12.0-16.0); Lymphocyte % 23.6 %; Mean Corpuscular HGB Conc 34 g/dL (31-36); Mean Corpuscular Hemoglobin 32 pg (27-31); Mean Corpuscular Volume 93 fL (80-97); Mean Platelet Volume 7.4 fL (7.4-10.4); Nucleated Red Blood Cells % 0.1; Platelet Count 234 10^3/uL (150-450); Red Blood Count 4.25 10^6 /uL (3.70-4.87); Red Cell Distribution Width 14 % (10.5-15); White Blood Count 8.6 10^3/uL (3.5-10.8)
[2018-10-13 17:59] LABS: Albumin/Globulin Ratio 1.5 (1-3); BUN/Creatinine Ratio 16.9 (8-20); Calcium 9.3 mg/dL (8.6-10.3); EGFR African American 137.3 (>60); EGFR Non-African American 113.5 (>60); Globulin 2.6 g/dL (2-4); Potassium 3.9 mmol/L (3.5-5.0); Total Bilirubin 0.3 mg/dL (0.2-1.0); Total Protein 6.6 g/dL (6.4-8.9)
[2018-10-13] MEDS ORDERED: Lidocaine 1% INJ* 10 MG/ML 30 ML SDV ONE (18:56)
[2018-10-13] MEDS ORDERED: DOXYcycline CAP(*) 100 MG PO ONE (20:10)
--- NOTE | 2018-10-13 20:23 | PN ---
Progress Note - Progress Note Date of Service: 10/13/18 Note: abscess drainage by Bridget CALERO r axillary lidocaine 1% 3cc in area incision made 4cc pus from wound r thigh lidocaine 1% 1cc in area incision made no pus drainage from wound
--- NOTE | 2018-10-13 20:27 | ED ---
Skin Complaint - HPI Summary HPI Summary: Patient is a 38 y/o female who presents to the ED c/o abscess. She has a hx of MRSA. For the past several days patient has c/o fatigue and body aches. This morning she noticed a red lump in her axilla and a draining lesion in her distal right thigh. Patient denies any fever, N/V/D, abdominal pain, CP, SOB, or LE edema. Pain is rated a 2/10 in severity. - History of Current Complaint Chief Complaint: EDRashSkinAbscess Time Seen by Provider: 10/13/18 16:40 Stated Complaint: POSS MRSA PER PT Hx Obtained From: Patient Hx Last Menstrual Period: iud Onset/Duration: Started Days Ago - 2-3, Still Present Timing: Constant Current Severity: Mild Pain Intensity: 2 Pain Scale Used: 0-10 Numeric Skin Location: Other: - right axilla, right thigh Character: Pain, Redness Related History: Other: - known MRSA - Additional Pertinent History Primary Care Physician: VONDA - Allergy/Home Medications Allergies/Adverse Reactions: Allergies Allergy/AdvReac Type Severity Reaction Status Date / Time vancomycin Allergy Rash Verified 09/24/17 17:34 Home Medications: Home Medications Suboxone 4 mg-1 mg Sl Film 4 mg PO BID 10/13/18 [History Confirmed 10/13/18] PMH/Surg Hx/FS Hx/Imm Hx Endocrine/Hematology History: Reports: Hx Blood Disorders - h/o sepsis Denies: Hx Anticoagulant Therapy, Hx Diabetes, Hx Thyroid Disease Cardiovascular History: Reports: Hx Deep Vein Thrombosis, Hx Embolism Denies: Hx Congestive Heart Failure, Hx Hypertension, Hx Myocardial Infarction, Hx Pacemaker/ICD Respiratory History: Reports: Hx Pulmonary Embolism, Hx Sleep Apnea, Other Respiratory Problems/Disorders - HX OF BILATERAL PE'S Denies: Hx Asthma, Hx Chronic Obstructive Pulmonary Disease (COPD), Hx Lung Cancer, Hx Pneumonia GI History: Denies: Hx Gall Bladder Disease, Hx Gastrointestinal Bleed, Hx Ulcer, Hx Urosepsis History: Denies: Hx Dialysis, Hx Kidney Stones, Hx Renal Disease Musculoskeletal History: Denies: Hx Scoliosis Sensory History: Denies: Hx Contacts or Glasses, Hx Hearing Aid Opthamlomology History: Denies: Hx Contacts or Glasses Neurological History: Reports: Hx CVA - x 2, Hx Seizures, Hx Transient Ischemic Attacks (TIA) Denies: Hx Dementia, Hx Headaches, Hx Migraine Psychiatric History: Reports: Hx Anxiety, Hx Depression, Hx Panic Disorder, Hx Post Traumatic Stress Disorder, Hx Bipolar Disorder Denies: Hx Eating Disorder, Hx of Violent Episodes Against Others - Surgical History Surgery Procedure, Year, and Place: appendectomy 2002; Hx Anesthesia Reactions: No Infectious Disease History: Yes Infectious Disease History: Reports: Hx of Known/Suspected MRSA Denies: Hx Clostridium Difficile, Hx Hepatitis, Hx Human Immunodeficiency Virus (HIV), Hx Shingles, Hx Tuberculosis, Hx Known/Suspected VRE, Hx Known/ Suspected VRSA, History Other Infectious Disease, Traveled Outside the [place] in Last 30 Days - Family History Known Family History: Positive: Hypertension, Other - gall bladder disease, Crohn's Negative: Cardiac Disease, Diabetes - Social History Alcohol Use: None Hx Substance Use: Yes Substance Use Type: Reports: Marijuana, Other Substance Use Comment - Amount & Last Used: States she smokes Marijuana ocassionally for insomnia Hx Tobacco Use: Yes Smoking Status (MU): Current Every Day Smoker Type: Cigarettes Amount Used/How Often: 1 ppd Have You Smoked in the Last Year: Yes Review of Systems Positive: Fatigue. Negative: Fever Negative: Chest Pain Negative: Shortness Of Breath Negative: Abdominal Pain, Vomiting, Diarrhea, Nausea Positive: Myalgia. Negative: Edema - LE edema Positive: Other - lump to right axilla and thigh All Other Systems Reviewed And Are Negative: Yes Physical Exam - Summary Physical Exam Summary: Constitutional: Well-developed, Well-nourished, Alert. (-) Distressed Skin: Warm, Dry, Multiple diffuse excoriated lesions, Fluctuant nodule in right axilla measuring 2 cm in diameter, 1 cm area of induration and fluctuance in right distal inner thigh with 4-5 cm of surrounding erythema and small amount of purulent drainage in the center HENT: Normocephalic; Atraumatic Eyes: Conjunctiva normal Neck: Musculoskeletal ROM normal neck. (-) JVD, (-) Stridor, (-) Tracheal deviation Cardio: Rhythm regular, rate normal, Heart sounds normal; Intact distal pulses; The pedal pulses are 2+ and symmetric. Radial pulses are 2+ and symmetric. (-) Murmur Pulmonary/Chest wall: Effort normal. (-) Respiratory distress, (-) Wheezes, (-) Rales Abd: Soft, (-) tenderness, (-) Distension, (-) Guarding, (-) Rebound Musculoskeletal: (-) Edema Lymph: (-) Cervical adenopathy Neuro: Alert, Oriented x3 Psych: Mood and affect Normal Triage Information Reviewed: Yes Vital Signs On Initial Exam: Initial Vitals Temp Pulse Resp BP Pulse Ox 97.8 F 79 20 135/66 100 10/13/18 13:24 10/13/18 13:24 10/13/18 13:24 10/13/18 13:24 10/13/18 13:24 Vital Signs Reviewed: Yes Diagnostics - Vital Signs Vital Signs Temp Pulse Resp BP Pulse Ox 10/13/18 13:24 97.8 F 79 20 135/66 100 - Laboratory Lab Results: Lab Results 10/13/18 10/13/18 Range/Units 17:31 17:31 WBC 8.6 (3.5-10.8) 10^3/uL RBC 4.25 (3.70-4.87) 10^6 /uL Hgb 13.5 (12.0-16.0) g/dL Hct 40 (33-41) % MCV 93 (80-97) fL MCH 32 H (27-31) pg MCHC 34 (31-36) g/dL RDW 14 (10.5-15) % Plt Count 234 (150-450) 10^3/uL MPV 7.4 (7.4-10.4) fL Neut % (Auto) 69.3 % Lymph % (Auto) 23.6 % [place] % (Auto) 5.4 % Eos % (Auto) 1.2 % Baso % (Auto) 0.5 % Absolute Neuts (auto) 6.0 (1.5-7.7) 10^3/ul Absolute Lymphs (auto) 2.0 (1.0-4.8) 10^3/ul Absolute Monos (auto) 0.5 (0-0.8) 10^3/ul Absolute Eos (auto) 0.1 (0-0.6) 10^3/ul Absolute Basos (auto) 0 (0-0.2) 10^3/ul Absolute Nucleated RBC 0 10^3/ul Nucleated RBC % 0.1 Sodium 138 (135-145) mmol/L Potassium 3.9 (3.5-5.0) mmol/L Chloride 107 (101-111) mmol/L Carbon Dioxide 27 (22-32) mmol/L Anion Gap 4 (2-11) mmol/L BUN 10 (6-24) mg/dL Creatinine 0.59 (0.51-0.95) mg/dL Est GFR ( Amer) 137.3 (>60) Est GFR (Non-Af Amer) 113.5 (>60) BUN/Creatinine Ratio 16.9 (8-20) Glucose 119 H (70-100) mg/dL Calcium 9.3 (8.6-10.3) mg/dL Total Bilirubin 0.30 (0.2-1.0) mg/dL AST 13 (13-39) U/L ALT 9 (7-52) U/L Alkaline Phosphatase 34 (34-104) U/L Total Protein 6.6 (6.4-8.9) g/dL Albumin 4.0 (3.2-5.2) g/dL Globulin 2.6 (2-4) g/dL Albumin/Globulin Ratio 1.5 (1-3) Result Diagrams: 10/13/18 17:31 10/13/18 17:31 Lab Statement: Any lab studies that have been ordered have been reviewed, and results considered in the medical decision making process. Course/Dx - Course Course Of Treatment: Patient is a 38 y/o female who presents to the ED c/o red lump in her axilla and a draining lesion in her distal right thigh. She has a hx of MRSA. For the past several days patient has c/o fatigue and body aches. A physical exam revealed multiple diffuse excoriated lesions, Fluctuant nodule in right axilla measuring 2 cm in diameter, 1 cm area of induration and fluctuance in right distal inner thigh with 4-5 cm of surrounding erythema and small amount of purulent drainage in the center. Two incisions and drainages were performed by the PA. In the course patient was given Doxycycline and Lidocaine. Bloodwork obtained. Final dx is abscess. Patient is discharged and is agreeable with this plan. - Diagnoses Provider Diagnoses: Abscess Discharge - Sign-Out/Discharge Documenting (check all that apply): Patient Departure - Discharge Patient Received Moderate/Deep Sedation with Procedure: No - Discharge Plan Condition: Stable Disposition: HOME Prescriptions: DOXYcycline CAP(*) [DOXYcycline 100MG CAP(*)] 100 mg PO BID #20 cap Patient Education Materials: Abscess (ED) Print Language: [place] CITIZEN Referrals: Nuha Borrero MD [Primary Care Provider] - - Billing Disposition and Condition Condition: STABLE Disposition: Home - Attestation Statements Document Initiated by Scribe: Yes Documenting Scribe: Komal Baptiste Provider For Whom Scribe is Documenting (Include Credential): Marsha Doss MD Scribe Attestation: Komal Lee, scribed for Marsha Tobin MD on 10/13/18 at 2247. Scribe Documentation Reviewed: Yes Provider Attestation: The documentation as recorded by the giulianoibKomal jansen accurately reflects the service I personally performed and the decisions made by me, Marsha Doss MD Status of Scribe Document: Viewed
[2018-10-13 20:34] VITALS: BP 138/84
--- NOTE | 2018-10-14 08:14 | PN ---
Progress Note - Progress Note Date of Service: 10/13/18 Note: Wound culture MRSA +. Pt. treated with doxycycline. Pending final culture and sensitivity. No change in treatment at this time.
== END 2018-10-13 20:32 | disposition home or self-care (01) ==
LOC: ED 13:20
DX: L02.415 Cutaneous abscess of right lower limb (principal); Z86.718 Personal history of other venous thrombosis and embolism; Z79.01 Long term (current) use of anticoagulants; Z86.711 Personal history of pulmonary embolism; Z86.73 Personal history of transient ischemic attack (TIA), and cerebral infarction without residual deficits; F17.210 Nicotine dependence, cigarettes, uncomplicated
CPT/HCPCS: 10060; 36415; 80053; 85025; 87070; 87077; 87186; 87205; 87640; 87641; 99282; A9270-GY

== ENCOUNTER 2019-01-02 22:07 | Emergency (ER) | payer SELFPAY ==
[2019-01-02] MEDS ORDERED: NS 0.9% 1000 ML** 2,000 ML IV ONE (22:55)
[2019-01-02] MEDS ORDERED: Ondansetron INJ* 2 MG/ML VIAL IV ONE (22:56)
[2019-01-02] MEDS ORDERED: Ketorolac INJ* 30 MG/ML 1 ML VIAL IV PUSH ONE (22:56)
--- NOTE | 2019-01-02 22:58 | ED ---
Abdominal Pain/Female - HPI Summary HPI Summary: This patient is a 38 year old F presenting to ED with a chief complaint of sudden onset upper abdominal pain after eating ice cream at 1999 today. She reports vomiting multiple times since. Patient has had abdominal symptoms before (gallstones), but nothing this bad before. Patient still has her gallbladder. PSHX of appendectomy. Patient is on suboxone. The patient rates the pain 10/10 in severity. Symptoms aggravated by nothing. Symptoms alleviated by nothing. Patient denies fever. - History of Current Complaint Chief Complaint: EDAbdPain Stated Complaint: STOMACH PAIN PER PT Time Seen by Provider: 01/02/19 22:52 Hx Obtained From: Patient Hx Last Menstrual Period: iud Onset/Duration: Sudden Onset, Lasting Hours - Since 1999 today, Still Present Timing: Constant Severity Initially: Severe Severity Currently: Severe Pain Intensity: 10 Pain Scale Used: 0-10 Numeric Location: Discrete At: RUQ Aggravating Factor(s): Nothing Alleviating Factor(s): Nothing Associated Signs and Symptoms: Positive: Vomiting Allergies/Adverse Reactions: Allergies Allergy/AdvReac Type Severity Reaction Status Date / Time vancomycin Allergy Rash Verified 09/24/17 17:34 PMH/Surg Hx/FS Hx/Imm Hx Endocrine/Hematology History: Reports: Hx Blood Disorders - h/o sepsis Denies: Hx Anticoagulant Therapy, Hx Diabetes, Hx Thyroid Disease Cardiovascular History: Reports: Hx Deep Vein Thrombosis, Hx Embolism Denies: Hx Congestive Heart Failure, Hx Hypertension, Hx Myocardial Infarction, Hx Pacemaker/ICD Respiratory History: Reports: Hx Pulmonary Embolism, Hx Sleep Apnea, Other Respiratory Problems/Disorders - HX OF BILATERAL PE'S Denies: Hx Asthma, Hx Chronic Obstructive Pulmonary Disease (COPD), Hx Lung Cancer, Hx Pneumonia GI History: Reports: Hx Gall Bladder Disease - gallstones Denies: Hx Gastrointestinal Bleed, Hx Ulcer, Hx Urosepsis History: Denies: Hx Dialysis, Hx Kidney Stones, Hx Renal Disease Musculoskeletal History: Denies: Hx Scoliosis Sensory History: Denies: Hx Contacts or Glasses, Hx Hearing Aid Opthamlomology History: Denies: Hx Contacts or Glasses Neurological History: Reports: Hx CVA - x 2, Hx Seizures, Hx Transient Ischemic Attacks (TIA) Denies: Hx Dementia, Hx Headaches, Hx Migraine Psychiatric History: Reports: Hx Anxiety, Hx Depression, Hx Panic Disorder, Hx Post Traumatic Stress Disorder, Hx Bipolar Disorder Denies: Hx Eating Disorder, Hx of Violent Episodes Against Others - Surgical History Surgery Procedure, Year, and Place: appendectomy 2002; Hx Anesthesia Reactions: No Infectious Disease History: No Infectious Disease History: Reports: Hx of Known/Suspected MRSA Denies: Hx Clostridium Difficile, Hx Hepatitis, Hx Human Immunodeficiency Virus (HIV), Hx Shingles, Hx Tuberculosis, Hx Known/Suspected VRE, Hx Known/ Suspected VRSA, History Other Infectious Disease, Traveled Outside the [place] in Last 30 Days - Family History Known Family History: Positive: Hypertension, Other - gall bladder disease, Crohn's Negative: Cardiac Disease, Diabetes - Social History Alcohol Use: None Hx Substance Use: Yes Substance Use Type: Reports: Marijuana Substance Use Comment - Amount & Last Used: States she smokes Marijuana ocassionally for insomnia Hx Tobacco Use: Yes Smoking Status (MU): Current Every Day Smoker Type: Cigarettes Amount Used/How Often: 1 ppd Have You Smoked in the Last Year: Yes Review of Systems Negative: Fever Positive: Abdominal Pain, Vomiting All Other Systems Reviewed And Are Negative: Yes Physical Exam - Summary Physical Exam Summary: Appearance: colicky appearing, lying on the stretcher in obvious pain Skin: Warm, dry, no obvious rash Eyes: sclera anicteric, no conjunctival pallor ENT: mucous membranes moist, pharynx appears normal Neck: Supple, nontender Respiratory: Clear to auscultation, no signs of respiratory distress Cardiovascular: Normal S1, S2. No murmurs. Normal distal pulses in tibial and radial bilaterally. Abdomen: RUQ tenderness Musculoskeletal: Normal, Strength/ROM Intact Neurological: A&Ox3, awake and alert, mentation is normal, speech is fluent and appropriate Psychiatric: affect is normal, does not appear anxious or depressed Triage Information Reviewed: Yes Vital Signs On Initial Exam: Initial Vitals Temp Pulse Resp BP Pulse Ox 98.9 F 64 24 138/67 97 01/02/19 22:10 01/02/19 22:10 01/02/19 22:10 01/02/19 22:10 01/02/19 22:10 Vital Signs Reviewed: Yes Diagnostics - Vital Signs Vital Signs Temp Pulse Resp BP Pulse Ox 01/02/19 22:10 98.9 F 64 24 138/67 97 - Laboratory Result Diagrams: 01/02/19 23:03 01/02/19 23:03 Lab Statement: Any lab studies that have been ordered have been reviewed, and results considered in the medical decision making process. - Ultrasound Gallbladder Ultrasound Interpretation Completed By: Radiologist Summary of Ultrasound Findings: 1. Cholelithiasis without cholecystitis. 2. Nonspecific hepatomegaly. 3. Bosniak type I renal cyst. No followup indicated. Dr. Iniguez has reviewed this radiology report. Re-Evaluation - Re-Evaluation First Eval Re-Evaluation Time: 00:04 Comment: Patient reports feeling slightly better but still in a lot of pain. Abdominal Pain Fem Course/Dx - Course Course Of Treatment: This patient is a 38 year old F presenting to ED with a chief complaint of sudden onset upper abdominal pain after eating ice cream at 2000 today. In the ED course, patient received Toradol, fluids, morphine, Zofran , and Compazine. Blood work obtained. US gallbladder revealed 1. Cholelithiasis without cholecystitis. 2. Nonspecific hepatomegaly. 3. Bosniak type I renal cyst. No followup indicated. Discussed patient case with Dr. Arriaga, surgeon, who recommended the patient be admitted for cholelithiasis workup. At 0100 discussed patient case with Dr. Baxter who stated that the patient can be seen for gallstone surgery as an outpatient. Patient will be discharged home with dx of biliary colic. Patient understands and agrees with this plan. - Diagnoses Provider Diagnoses: Biliary colic - Provider Notifications Discussed Care Of Patient With: Joesph Arriaga Time Discussed With Above Provider: 00:07 Instructed by Provider To: Other - Discussed patient case with Dr. Arriaga, surgeon, who recommended the patient be admitted for cholelithiasis workup. At 0013 discussed patient case with Dr. Baxter, hospitalist, who stated that the patient can be seen for gallstone surgery as an outpatient. Discharge - Sign-Out/Discharge Documenting (check all that apply): Patient Departure - Discharge Patient Received Moderate/Deep Sedation with Procedure: No - Discharge Plan Condition: Good Disposition: HOME Patient Education Materials: Biliary Colic (ED) Referrals: Joesph Arriaga MD [Medical Doctor] - Additional Instructions: Your evaluation tonight showed gallstones on her ultrasound. Your symptoms are fairly typical for a gallbladder attack. It is very likely that these symptoms will recur at some point in the future. I would recommend making an appointment with the surgeon listed to talk to him about having surgery to remove the gallbladder to prevent future problems. The meantime you can continue to take her regular medications. - Attestation Statements Document Initiated by Scribe: Yes Documenting Scribe: Sam Fairbanks Provider For Whom Whit is Documenting (Include Credential): Silvino Iniguez MD Scribe Attestation: I, Sam Fairbanks, scribed for Silvino Iniguez MD on 01/03/19 at 0244. Status of Scribe Document: Ready
[2019-01-02 23:14] LABS: ABS Basophils 0.1 10^3/ul (0-0.2); ABS Eosinophils 0.1 10^3/ul (0-0.6); ABS Lymphocytes 1.9 10^3/ul (1.0-4.8); ABS Monocytes 0.6 10^3/ul (0-0.8); ABS Neutrophils 8.3 10^3/ul (1.5-7.7); Eosinophil % 1.1 %; Hematocrit 43 % (35-47); Hemoglobin 14.7 g/dL (12.0-16.0); Mean Corpuscular HGB Conc 34 g/dL (31-36); Mean Corpuscular Hemoglobin 32 pg (27-31); Mean Corpuscular Volume 94 fL (80-97); Mean Platelet Volume 7.5 fL (7.4-10.4); Platelet Count 264 10^3/uL (150-450); Red Blood Count 4.58 10^6 /uL (3.70-4.87); Red Cell Distribution Width 14 % (10-15); White Blood Count 10.9 10^3/uL (3.5-10.8)
[2019-01-02] MEDS ORDERED: Morphine 4 MG/ML VIAL (1 ml) 4 MG/ML VIAL IV ONE (23:14)
[2019-01-02 23:32] LABS: ALT 10 U/L (7-52); AST 16 U/L (13-39); Albumin 4.5 g/dL (3.2-5.2); Albumin/Globulin Ratio 1.6 (1-3); Alkaline Phosphatase 37 U/L (34-104); Anion Gap 11 mmol/L (2-11); BUN/Creatinine Ratio 20.8 (8-20); Blood Urea Nitrogen 16 mg/dL (6-24); C Reactive Protein < 1.00 mg/L (<8.01); CO2 Carbon Dioxide 24 mmol/L (22-32); Calcium 9.6 mg/dL (8.6-10.3); Chloride 106 mmol/L (101-111); EGFR Non-African American 83.5 (>60); Globulin 2.9 g/dL (2-4); Glucose 117 mg/dL (70-100); Potassium 3.4 mmol/L (3.5-5.0); Sodium 141 mmol/L (135-145); Total Protein 7.4 g/dL (6.4-8.9)
[2019-01-02] MEDS ORDERED: PROCHLORPERAZINE INJ 5 MG/ML 2 ML VIAL IV ONE (23:37)
[2019-01-02 23:39] LABS: HCG Pregnancy < 0.60 mIU/mL
[2019-01-03] MEDS ORDERED: Morphine 4 MG/ML VIAL (1 ml) 4 MG/ML VIAL IV ONE (00:09)
[2019-01-03 03:16] VITALS: BP 106/58
== END 2019-01-03 03:15 | disposition home or self-care (01) ==
LOC: ED 22:07
DX: K80.50 Calculus of bile duct without cholangitis or cholecystitis without obstruction (principal); R16.0 Hepatomegaly, not elsewhere classified; N28.1 Cyst of kidney, acquired; R11.10 Vomiting, unspecified; Z90.89 Acquired absence of other organs; Z86.73 Personal history of transient ischemic attack (TIA), and cerebral infarction without residual deficits; Z88.1 Allergy status to other antibiotic agents; F17.210 Nicotine dependence, cigarettes, uncomplicated
CPT/HCPCS: 36415; 76705; 80053; 83690; 84702; 85025; 86140; 96361; 96374; 96375; 96376; 99283; J0780; J1885; J2270; J2405

== ENCOUNTER 2019-05-18 13:36 | Emergency (ER) | payer OTHER ==
[2019-05-18 13:47] VITALS: BP 114/61
--- NOTE | 2019-05-18 14:15 | UC ---
Skin Complaint HPI - HPI Summary HPI Summary: 38-year-old female who had a very small tick bite to her left hip this morning stating she was still able to see the head of the tick and it had only been there for about one or 2 hours or less. States she's had some mild burning on urination but no fever or chills. - History of Current Complaint Chief Complaint: UCSkin Time Seen by Provider: 05/18/19 13:42 Stated Complaint: TICK BITE Hx Obtained From: Patient Hx Last Menstrual Period: IUD ?: No Onset/Duration: Gradual Onset Skin Exposure Onset/Duration: Hours Ago Onset Severity: Mild Current Severity: Mild - Patient states the tick was embedded less than 2 hours and was not engorged. She states she was still able to see the head in her skin. Pain Intensity: 2 Location: Other - Left hip. Aggravating Factor(s): Nothing Alleviating Factor(s): Nothing Associated Signs & Symptoms: Positive: Negative - Patient also complained of mild burning on urination today. Related History: Insect Bite/Sting - Allergy/Home Medications Allergies/Adverse Reactions: Allergies Allergy/AdvReac Type Severity Reaction Status Date / Time vancomycin Allergy Rash Verified 05/18/19 13:47 PMH/Surg Hx/FS Hx/Imm Hx Previously Healthy: Yes Other History Of: Negative For: HIV, Hepatitis B, Hepatitis C, Anticoagulant Therapy - Surgical History Surgical History: Yes Surgery Procedure, Year, and Place: appendectomy 2002; - Family History Known Family History: Positive: Hypertension, Other - gall bladder disease, Crohn's Negative: Cardiac Disease, Diabetes - Social History Alcohol Use: None Substance Use Type: Marijuana Substance Use Comment - Amount & Last Used: daily Smoking Status (MU): Light Every Day Tobacco Smoker Type: Cigarettes Amount Used/How Often: 1/2 PPD Have You Smoked in the Last Year: Yes Household Exposure Type: Cigarettes - Immunization History Most Recent Influenza Vaccination: March 2015 Most Recent Tetanus Shot: unknown Most Recent Pneumonia Vaccination: Never Review of Systems All Other Systems Reviewed And Are Negative: Yes Skin: Positive: Bruising - Very small bruise to the left hip area. Genitourinary: Positive: Dysuria - Mild burning on urination today. Is Patient Immunocompromised?: No Physical Exam Triage Information Reviewed: Yes Appearance: Well-Appearing, No Pain Distress, Well-Nourished Vital Signs: Initial Vital Signs Temp 98.9 F 05/18/19 13:42 Pulse 75 05/18/19 13:42 Resp 16 05/18/19 13:42 BP 114/61 05/18/19 13:42 Pulse Ox 96 05/18/19 13:42 Vital Signs Reviewed: Yes Respiratory: Positive: Lungs clear, Normal breath sounds, No respiratory distress, No accessory muscle use Cardiovascular: Positive: RRR, No Murmur, Pulses Normal, Brisk Capillary Refill Abdomen Description: Positive: Nontender, No Organomegaly, Soft. Negative: CVA Tenderness (R), CVA Tenderness (L), Distended, Guarding, Hepatomegaly, McBurney' s Point Tenderness, Splenomegaly Bowel Sounds: Positive: Present Musculoskeletal Exam: Normal Neurological Exam: Normal Psychological Exam: Normal Skin: Positive: Other - Patient has a circular bruise to the left hip approximately 4-5 mm in diameter. No tick parts are present. Course/Dx - Course Course Of Treatment: The urinalysis showed only trace of blood however I will send it for a culture. The patient opted not to take the prophylactic doxycycline. We reviewed the CDC guidelines and she states doxycycline really upsets her stomach and she prefers not to take. Signs and symptoms of Lyme disease were reviewed with the patient. - Diagnoses Provider Diagnosis: Tick bite, Dysuria Discharge ED - Sign-Out/Discharge Documenting (check all that apply): Patient Departure All imaging exams completed and their final reports reviewed: No Studies - Discharge Plan Condition: Good Disposition: HOME Patient Education Materials: Tick Bite (ED) Referrals: Nuha Borrero MD [Primary Care Provider] - Additional Instructions: Increase fluids, we will call you if the culture report comes back positive for urinary tract infection. If you develop any fever, chills, body aches or rashes in the next 2 or 3 weeks and you're to recheck with your primary care provider. - Billing Disposition and Condition Condition: GOOD Disposition: Home
== END 2019-05-18 14:21 | disposition home or self-care (01) ==
LOC: UCEAST 13:36
DX: S70.262A Insect bite (nonvenomous), left hip, initial encounter (principal); F17.210 Nicotine dependence, cigarettes, uncomplicated; R30.0 Dysuria; Z88.1 Allergy status to other antibiotic agents; W57.XXXA Bitten or stung by nonvenomous insect and other nonvenomous arthropods, initial encounter; Y92.9 Unspecified place or not applicable
CPT/HCPCS: 81003; 84702; 87086; 99211; G0463

== ENCOUNTER 2019-06-08 17:46 | Emergency (ER) | payer OTHER ==
--- OUTSIDE RECORDS SUMMARY | 2019-06-08 17:52 | XMS REPORT ---
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 Relevant diagnostic tests/laboratory data Narrative No Information Procedures Procedure Code CodeSystem Target Date of Status Service Device Device Device Name Site Procedure Delivery Code Name UID Location Psychother [id number] SNOMED-CT () 2019-03-15 completed Mental apy, 45 4 [facility]- minutes [place] with [address], [id number] Psychother [id number] SNOMED-CT () 2019-03-08 completed Mental apy, 45 4 [facility]- minutes [place] with [address], [id number] Psychother [id number] SNOMED-CT () 2019-04-26 completed Mental apy, 45 4 [facility]- minutes [place] with [address], [id number] Psychother [id number] SNOMED-CT () 2018-09-28 completed Mental apy, 45 4 [facility]- minutes [place] with [address], [id number] Psychother [id number] SNOMED-CT () 2018-11-11 completed Mental apy, 45 4 [facility]- minutes [place] with [address], [id number] SNOMED-CT () 2019-01-29 completed Mental Health- [place] [address], [id number] SNOMED-CT () 2019-02-18 completed Mental Health- [address], [id number] Encounters/Encounter Diagnoses Encounter Name Encounter Diagnosis Diagnosis Diagnosis Date of Service Code Code Name CodeSystem Diagnosis Delivery Location Psychotherapy - [id number] Adjustment SNOMED-CT 2019-05-10 Behavioral Individual 30 disorder [facility] with mixed Clinic , , anxiety and , depressed mood Vital Signs No Information Social History Element Description Description Start End Code CodeSystem AdditionalInfo Date Date SexAssignedAtBirth Female F AdministrativeGender 2-04 Hospital Discharge Instructions Reason For Referral Medical Equipment FDA Assessments
--- NOTE | 2019-06-08 18:55 | UC ---
Back Pain HPI - HPI Summary HPI Summary: Pleasant 38 yo female c/o Low back pain, left, radiating down L leg x last couple days. Does not associate it with particular event or trauma. No b/b issues. Feels dysesthesia to all distal 5 toes, and plantar foot. No abd pain. No weakness. Hurts to bend over, twist, walk. (able to walk slowly). No rash. Has not felt feverish. Has taken ibuprofen, last dose this am. - History of Current Complaint Chief Complaint: UCBackPain Stated Complaint: BACK, LEG PAIN Time Seen by Provider: 06/08/19 18:43 Hx Obtained From: Patient Hx Last Menstrual Period: iud Pain Intensity: 10 - Allergies/Home Medications Allergies/Adverse Reactions: Allergies Allergy/AdvReac Type Severity Reaction Status Date / Time vancomycin Allergy Rash Verified 06/08/19 18:13 Home Medications: Home Medications Acetaminophen [Tylenol Extra Strength] 1,500 mg PO DAILY PRN 06/08/19 [History Confirmed 06/08/19] Nicotine [Nicotine Transdermal Syst 21-14-7 mg/24Hr] 1 patch .ROUTE DAILY PRN [History Confirmed 06/08/19] PMH/Surg Hx/FS Hx/Imm Hx Previously Healthy: No - significant hx (iPourit), currently feeling healthy Other History Of: Negative For: HIV, Hepatitis B, Hepatitis C, Anticoagulant Therapy - Surgical History Surgical History: Yes Surgery Procedure, Year, and Place: appendectomy 2002; - Family History Known Family History: Positive: Hypertension, Other - gall bladder disease, Crohn's Negative: Cardiac Disease, Diabetes - Social History Alcohol Use: None Substance Use Type: Marijuana Substance Use Comment - Amount & Last Used: daily Smoking Status (MU): Light Every Day Tobacco Smoker Type: Cigarettes Amount Used/How Often: 1 pack per 3 days Have You Smoked in the Last Year: Yes Household Exposure Type: Cigarettes - Immunization History Most Recent Influenza Vaccination: March 2015 Most Recent Tetanus Shot: unknown Most Recent Pneumonia Vaccination: Never Review of Systems All Other Systems Reviewed And Are Negative: Yes Constitutional: Positive: Other - see Skin: Positive: Negative - see hpi Eyes: Positive: Negative ENT: Positive: Negative Respiratory: Positive: Negative Cardiovascular: Positive: Negative Gastrointestinal: Positive: Negative Genitourinary: Positive: Negative Motor: Positive: Other - see hpi Neurovascular: Positive: Other - see hpi Musculoskeletal: Positive: Other: - see hpi Neurological: Positive: Other - see hpi Psychological: Positive: Negative Is Patient Immunocompromised?: No Physical Exam Triage Information Reviewed: Yes Appearance: Thin, Other: - uncomfortable with examination, no acute distress Vital Signs: Initial Vital Signs Temp 100.0 F 06/08/19 18:15 Pulse 71 06/08/19 18:15 Resp 18 06/08/19 18:15 BP 138/69 06/08/19 18:15 Pulse Ox 99 06/08/19 18:15 Vital Signs Reviewed: Yes Eye Exam: Normal ENT Exam: Normal Dental Exam: Other - poor Neck: Positive: Supple, Nontender, No Lymphadenopathy Respiratory Exam: Normal Respiratory: Positive: Chest non-tender, Lungs clear, Normal breath sounds, No respiratory distress, No accessory muscle use Cardiovascular: Positive: RRR, No Murmur, Pulses Normal, Brisk Capillary Refill Abdominal Exam: Normal Abdomen Description: Positive: Nontender Bowel Sounds: Positive: Present Musculoskeletal Exam: Other - gait steady, but slow (looks uncomfortable). Able to wiggle toes but painful. Able to dorsi and plantar flex (including great toe ) but painful. Cap refill is good. + dysesthesia (albeit + LT sens) to plantar foot and all 5 toes. Tender Left perilumbar area meche L5-S1. No point bony tenderness. + spasm noted. Neurological Exam: Other - see musc skel o/w nad Psychological Exam: Normal - conversing easily and appropriately Skin Exam: Normal - no visible or reported rash Back Pain Course/Dx - Course Course Of Treatment: Temp 100.0F at triage. I reviewed her PMH as noted in [employer]. Has had some significant challenges over the last several years, but reports has been doing well and feels healthy now. 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 Ketoralac IM x 1 [address]mg[address] Will check CT lumbar area. Will check cbc, crp, sed rate urine dip unremark / ucg neg Reviewed CT report with pt. + L5-S1 herniation. Reviewed coa / tx plan with pt. She is in the process of finding a new PCP, and will work on this. Aware to go to the Emergency Dept for any worse or new problems. Declines work / school note. Questions as posed answered to the best of my ability. Rx prednisone. - Differential Dx/Diagnosis Provider Diagnosis: Lumbar disc herniation Discharge ED - Sign-Out/Discharge Documenting (check all that apply): Patient Departure All imaging exams completed and their final reports reviewed: Yes - Discharge Plan Condition: Stable Disposition: HOME Prescriptions: predniSONE TAB* [Deltasone 10 MG TAB*] 10 mg PO DAILY #24 tab Patient Education Materials: Lumbar Disc Herniation (ED), Acute Low Back Pain ( ED) Referrals: [facility] [Outside] Nuha Borrero MD [Primary Care Provider] - Additional Instructions: Please follow up with a primary care physician as soon as you can. Please go to the Emergency Department for any worse or new symptoms. Rest. Minimize any walking, NO heavy lifting while you are having pain symptoms. Hydrate. Consider daily stress Vitamin B-complex (over the counter supplement, please note that this will change the color of your urine to bright yellow while you are taking Vit B complex) Consider daily lysine 500mg po (also over the counter supplement). Start prednisone taper tomorrow. - Billing Disposition and Condition Condition: STABLE Disposition: Home
[2019-06-08] MEDS ORDERED: Ketorolac INJ* 30 MG/ML 1 ML VIAL IM ONE (19:24)
[2019-06-08 21:30] VITALS: BP 133/72
[2019-06-09 13:04] LABS: ABS Basophils 0.1 10^3/ul (0-0.2); ABS Eosinophils 0.1 10^3/ul (0-0.6); ABS Lymphocytes 2.1 10^3/ul (1.0-4.8); ABS Monocytes 0.3 10^3/ul (0-0.8); ABS Neutrophils 4.2 10^3/ul (1.5-7.7); Eosinophil % 0.9 %; Hematocrit 40 % (35-47); Hemoglobin 13.9 g/dL (12.0-16.0); Lymphocyte % 31.3 %; Mean Corpuscular HGB Conc 35 g/dL (31-36); Mean Corpuscular Hemoglobin 33 pg (27-31); Mean Corpuscular Volume 96 fL (80-97); Mean Platelet Volume 8.5 fL (7.4-10.4); Nucleated Red Blood Cells % 0.1; Platelet Count 239 10^3/uL (150-450); Red Blood Count 4.19 10^6 /uL (3.70-4.87); Red Cell Distribution Width 13 % (10-15); White Blood Count 6.7 10^3/uL (3.5-10.8)
[2019-06-09 14:14] LABS: Erythrocyte Sed Rate 3 mm/Hr (0-19)
== END 2019-06-08 21:18 | disposition home or self-care (01) ==
LOC: UCEAST 17:46
DX: M51.26 Other intervertebral disc displacement, lumbar region (principal); F17.210 Nicotine dependence, cigarettes, uncomplicated; Z88.1 Allergy status to other antibiotic agents
CPT/HCPCS: 36415; 72131; 81003; 84702; 85025; 85652; 86140; 96372; 99212; G0463; J1885